=== PATIENT | female | born 1985 | race Caucasian/White ===

== ENCOUNTER 2020-11-30 12:06 | Outpatient (REF) | payer OTHER, SELFPAY ==
[2020-11-30 12:51] LABS: MANUAL DIFF FLAG NO
[2020-11-30 12:52] LABS: Basophils Percent Auto 0.8 % (0-2); Eosinophils Absolute Auto 0.1 X10*3/uL (0.0-0.4); Eosinophils Percent Auto 1.9 % (0-4); Hematocrit 39.4 % (37-47); Hemoglobin 12.9 g/dl (12.0-16.0); Imm Gran Abs Auto 0.01 X10*3/uL (0.00-0.03); Imm Gran Pct Auto 0.2 % (0.0-0.4); Lymphocytes Absolute Auto 1.5 X10*3/uL (1.2-4.9); Lymphocytes Percent Auto 28.2 % (20-40); Mean Corpuscular HGB Conc 32.7 g/dl (31.0-35.0); Mean Corpuscular Hemoglobin 27.4 pg (27.0-33.0); Mean Corpuscular Volume 83.8 fL (80-98); Monocytes Absolute Auto 0.8 X10*3/uL (0.1-1.2); Monocytes Percent Auto 14.9 % (2-11); Neutrophils Absolute Auto 2.8 X10*3/uL (2.0-8.3); Platelet Count 275 X10*3/uL (160-400); Red Cell Distribution Width 13.8 % (11.0-16.0); White Blood Count 5.2 X10*3/uL (4.8-10.8)
[2020-11-30 13:23] LABS: Alanine Aminotransferase 14 U/L (0-31); Albumin Level 4.2 g/dL (3.5-5.0); Alkaline Phosphatase 56 U/L (39-117); Anion Gap 10 (12-20); Aspartate Amino Transferase 17 U/L (5-31); Bilirubin Total 0.5 mg/dL (0.0-1.0); Blood Urea Nitrogen 11 mg/dL (9-16); Calcium 9.3 mg/dL (8.4-10.2); Carbon Dioxide 28 mmol/L (22-29); Chloride 105 mmol/L (96-108); Cholesterol 197 mg/dL; Estimated Glomerular Filt Rate > 60; Glucose Fasting 86 mg/dL (60-99); HDL Cholesterol 46 mg/dL; LDL Cholesterol Calculated 136 mg/dl; Potassium 3.4 mmol/L (3.3-5.1); Sodium 140 mmol/L (135-145); Triglycerides 78 mg/dL
[2020-11-30 13:43] LABS: TSH reflex Free T4 1.42 uIU/mL (0.32-4.0)
[2020-11-30 14:02] LABS: Folate > 20.0 ng/mL (> or = 4.0); Vitamin B12 567 pg/mL (200-900)
[2020-12-05 15:37] LABS: Vitamin D 25-OH, D2 <4 ng/mL; Vitamin D 25-OH, D3 36 ng/mL; Vitamin D 25-OH, Total 36 ng/mL (30-100)
== END 2020-11-30 12:07 | disposition home or self-care (01) ==
LOC: HO.LAB 12:06
PROVIDERS: Visit Provider Internal Medicine
DX: R53.82 Chronic fatigue, unspecified (principal); E66.3 Overweight; E78.5 Hyperlipidemia, unspecified; E55.9 Vitamin D deficiency, unspecified; Z20.822 Contact with and (suspected) exposure to COVID-19
CPT/HCPCS: 36415; 80053; 80061; 82306; 82607; 82746; 84443; 85025

== ENCOUNTER 2021-01-09 14:16 | Outpatient (REF) | payer OTHER, SELFPAY ==
--- NOTE | ~2021-01-09 | MR_ITS ---
EXAMINATION: MR BRAIN WITHOUT CONTRAST CLINICAL INFORMATION: New daily headaches. COMPARISON: None. TECHNIQUE: Multiplanar, multisequence imaging of the brain was performed without contrast. FINDINGS: No diffusion abnormalities are identified to suggest an acute or subacute infarct. The ventricles are normal in size. No mass effect or midline shift is seen. No brain parenchymal signal abnormality is noted. No extra-axial fluid collections are seen. The brainstem and cerebellum are normal. The gradient refocused acquisition is normal. The craniovertebral junction, marrow signal, and midline structures are normal. The major intracranial flow voids at the level of the [place] of [place] are preserved. The dural venous sinus flow voids are maintained. The mastoid air cells and paranasal sinuses are well aerated. MR/MR head/brain wo con IMPRESSION: Normal MRI of the brain. No acute process.
== END 2021-01-09 14:17 | disposition home or self-care (01) ==
LOC: HO.MRI 14:16
PROVIDERS: Visit Provider Internal Medicine
DX: G44.52 New daily persistent headache (NDPH) (principal)
CPT/HCPCS: 70551

== ENCOUNTER → 2021-04-28 14:36 | Outpatient (REF) | payer OTHER, SELFPAY ==
--- NOTE | 2021-04-28 14:45 | ECG_ITS ---
Hook-up date: 2021-04-28 14:53:00 Duration: 47:59:00 Test Indications: R00.2 Medications: [id number] QRS complexes 30 Ventricular ectopics which represent <1 % of total QRS comp. 4 Supraventricular ectopics which represent <1 % of total QRS comp. * Paced QRS complexs which represent % of total QRS comp. VENTRICULAR ECTOPY 30 Isolated 0 Bigeminal Cycles 0 Couplets 0 Runs 0 Beats in Runs * Beats LONGEST at * BPM at :: -- * Beats FASTEST at * BPM at :: -- SUPRAVENTRICULAR ECTOPY 1 Isolated 0 Couplets 1 Runs 3 Beats in Runs 3 Beats LONGEST at 118 BPM at 03:37:26 2021-04-30 3 Beats FASTEST at 118 BPM at 03:37:26 2021-04-30 HEART RATES 56 MIN at 08:31:47 2021-04-30 85 AVG 154 MAX at 11:55:10 2021-04-29 LONGEST RR 1.1280 secs at 00:28:18 2021-04-29 S-T LEVELS Channel 1 - 128 mm at 14:53:00 2021-04-28 - 128 mm at 14:53:00 2021-04-28 Channel 2 - 128 mm at 14:53:00 2021-04-28 - 128 mm at 14:53:00 2021-04-28 Channel 3 - 128 mm at 03:41:21 -- - 128 mm at 03:41:21 Underlying rhythm is sinus; Average ventricular rate 85/min; range 56-154/min; About 17% of the time, rate>100/min; Rare PACs/PVCs; Patient did not report any symptoms in the diary Referred By: Aurora Mejia Overread By: ADAM AUGUSTIN
== END ==
LOC: HO.CARD 14:36
PROVIDERS: Visit Provider Internal Medicine
DX: R00.2 Palpitations (principal)
CPT/HCPCS: 93225; 93226

== ENCOUNTER 2021-07-28 17:19 | Outpatient (REF) | payer OTHER, SELFPAY ==
--- NOTE | ~2021-07-28 | XR_ITS ---
EXAMINATION: XR THORACOLUMBAR SPINE CLINICAL INFORMATION: Pain COMPARISON: None TECHNIQUE: 3 views of the thoracic spine FINDINGS: There is mild curvature of the lower thoracic and upper lumbar spine to the right. Bone alignment is otherwise normal. No fracture or dislocation is seen. Disc spaces are normal. Paraspinal soft tissues are normal. XR/XR thoracic spine 2V IMPRESSION: Mild curvature of the thoracolumbar spine otherwise unremarkable exam.
== END 2021-07-28 17:20 | disposition home or self-care (01) ==
LOC: HO.XRAY 17:19
PROVIDERS: PCP Internal Medicine; Visit Provider Internal Medicine
DX: M54.6 Pain in thoracic spine (principal)
CPT/HCPCS: 72070

== ENCOUNTER 2021-11-23 12:41 | Outpatient (REF) | payer OTHER, SELFPAY ==
[2021-11-23 13:03] LABS: MANUAL DIFF FLAG NO
[2021-11-23 13:26] LABS: Basophils Percent Auto 0.6 % (0-2); Eosinophils Absolute Auto 0.1 X10*3/uL (0.0-0.4); Eosinophils Percent Auto 1.5 % (0-4); Hematocrit 39.5 % (37.0-47.0); Hemoglobin 12.9 g/dl (12.0-16.0); Imm Gran Abs Auto 0.03 X10*3/uL (0.00-0.03); Imm Gran Pct Auto 0.5 % (0.0-0.4); Lymphocytes Absolute Auto 1.7 X10*3/uL (1.2-4.9); Lymphocytes Percent Auto 26.1 % (20-40); Mean Corpuscular HGB Conc 32.7 g/dl (31.0-35.0); Mean Corpuscular Hemoglobin 27.7 pg (27.0-33.0); Mean Corpuscular Volume 84.8 fL (80.0-98.0); Mean Platelet Volume 10.7 fL (9.4-12.3); Neutrophils Absolute Auto 3.7 x10*3/uL (2.0-8.3); Neutrophils Percent Auto 56.3 % (45-73); Platelet Count 273 X10*3/uL (160-400); Red Blood Count 4.66 X10*6/uL (4.20-5.50); Red Cell Distribution Width 13.9 % (11.0-16.0); White Blood Count 6.6 X10*3/uL (4.8-10.8)
[2021-11-23 14:16] LABS: Alanine Aminotransferase 14 U/L (0-31); Alkaline Phosphatase 49 U/L (39-117); Anion Gap 10 (12-20); Aspartate Amino Transferase 14 U/L (5-31); Bilirubin Total 0.5 mg/dL (0.0-1.0); Blood Urea Nitrogen 11 mg/dL (9-16); Calcium 9.3 mg/dL (8.4-10.2); Carbon Dioxide 26 mmol/L (22-29); Chloride 108 mmol/L (96-108); Cholesterol 196 mg/dL; Estimated Glomerular Filt Rate > 60; Glucose Fasting 77 mg/dL (60-99); HDL Cholesterol 44 mg/dL; LDL Cholesterol Calculated 132 mg/dl; Potassium 3.9 mmol/L (3.3-5.1); Sodium 140 mmol/L (135-145); Total Protein 6.7 g/dL (6.5-8.0); Triglycerides 104 mg/dL
[2021-11-28 15:16] LABS: Vitamin D 25-OH, D2 <4 ng/mL; Vitamin D 25-OH, D3 26 ng/mL; Vitamin D 25-OH, Total 26 ng/mL (30-100)
== END 2021-11-23 12:42 | disposition home or self-care (01) ==
LOC: HO.LAB 12:41
PROVIDERS: Visit Provider Internal Medicine
DX: Z00.00 Encounter for general adult medical examination without abnormal findings (principal); E55.9 Vitamin D deficiency, unspecified
CPT/HCPCS: 36415; 80053; 80061; 82306; 85025

== ENCOUNTER 2022-12-03 10:20 | Outpatient (REF) | payer OTHER, SELFPAY ==
[2022-12-03 10:45] LABS: MANUAL DIFF FLAG NO
[2022-12-03 11:03] LABS: Basophils Absolute Auto 0.1 X10*3/uL (0.0-0.2); Basophils Percent Auto 1.1 % (0-2); Eosinophils Absolute Auto 0.2 X10*3/uL (0.0-0.4); Eosinophils Percent Auto 3.4 % (0-4); Hematocrit 40.2 % (37.0-47.0); Imm Gran Abs Auto 0.02 X10*3/uL (0.00-0.03); Imm Gran Pct Auto 0.4 % (0.0-0.4); Lymphocytes Absolute Auto 1.6 X10*3/uL (1.2-4.9); Lymphocytes Percent Auto 28.6 % (20-40); Mean Corpuscular HGB Conc 32.3 g/dl (31.0-35.0); Mean Corpuscular Hemoglobin 27.3 pg (27.0-33.0); Mean Corpuscular Volume 84.3 fL (80.0-98.0); Mean Platelet Volume 10.1 fL (9.4-12.3); Monocytes Absolute Auto 0.9 X10*3/uL (0.1-1.2); Neutrophils Absolute Auto 2.9 x10*3/uL (2.0-8.3); Neutrophils Percent Auto 51.5 % (45-73); Platelet Count 278 X10*3/uL (160-400); Red Blood Count 4.77 X10*6/uL (4.20-5.50); Red Cell Distribution Width 14.1 % (11.0-16.0); White Blood Count 5.7 X10*3/uL (4.8-10.8)
[2022-12-03 11:51] LABS: Alanine Aminotransferase 13 U/L (0-31); Alkaline Phosphatase 45 U/L (39-117); Anion Gap 12 (12-20); Aspartate Amino Transferase 14 U/L (5-31); Bilirubin Total 0.6 mg/dL (0.0-1.0); Blood Urea Nitrogen 9 mg/dL (9-16); Calcium 9.2 mg/dL (8.4-10.2); Carbon Dioxide 25 mmol/L (22-29); Chloride 110 mmol/L (96-108); Cholesterol 202 mg/dL; Estimated Glomerular Filt Rate > 60; Glucose Fasting 88 mg/dL (60-99); HDL Cholesterol 42 mg/dL; LDL Cholesterol Calculated 143 mg/dl; Sodium 143 mmol/L (135-145); Total Protein 6.5 g/dL (6.5-8.0); Triglycerides 87 mg/dL; Vitamin D 25-OH Total 35.6 ng/mL (>30)
== END 2022-12-03 10:21 | disposition home or self-care (01) ==
LOC: HO.LAB 10:20
PROVIDERS: PCP Internal Medicine; Visit Provider Internal Medicine
DX: Z00.00 Encounter for general adult medical examination without abnormal findings (principal); E55.9 Vitamin D deficiency, unspecified; D64.9 Anemia, unspecified
CPT/HCPCS: 36415; 80053; 80061; 82306; 85025

== ENCOUNTER 2023-02-11 09:49 | Emergency (ER) | payer OTHER, SELFPAY ==
--- NOTE | ~2023-02-11 | XR_ITS ---
EXAMINATION: XR FOOT, LEFT CLINICAL INFORMATION: Pain. Fall. COMPARISON: None available. TECHNIQUE: AP, lateral, and oblique views of the left foot. FINDINGS: The bones and soft tissues are normal. No fracture. Alignment is anatomic. Joint spaces are maintained. XR/XR foot LT 2V IMPRESSION: Normal left foot.
[2023-02-11 09:59] VITALS: BP 141/65; PULSE 67; RESP 18; TEMP 36.1; O2SAT 99; BMI 29.9
--- NOTE | 2023-02-11 10:44 | ED_ITS ---
HPI - Extremity Injury (Lower) General Chief Complaint: Extremity Injury, Lower Stated Complaint: fall l leg inj Time Seen by Provider: 02/11/23 10:05 Source: patient and federal appellate clerk Mode of arrival: ambulatory Limitations: language barrier History of Present Illness HPI Narrative: This is a 37-year-old female who is healthy who presents with left foot pain after a fall 6 days ago. Patient reports she has been unable to be seen for the foot pain. She has pain with weight-bearing. She denies any other injury. No weakness, numbness, tingling of the foot Related Data Previous Rx's Medication Instructions Recorded ketoconazole 2 % shampoo 1 appl topical .COMPLEX #120 mL 04/05/22 omeprazole 40 mg capsule,delayed 40 mg PO DAILY 90 days #90 caps 05/22/22 release naproxen 500 mg tablet 500 mg PO Q12H 90 days #180 tabs 06/14/22 cholecalciferol (vitamin D3) 25 25 mcg PO DAILY 90 days #90 caps 11/09/22 mcg (1,000 unit) capsule lorazepam 0.5 mg tablet 0.5 mg PO BEDTIME PRN anxiety 30 11/09/22 days #30 tabs fluoxetine 10 mg capsule 10 mg PO DAILY 90 days #90 caps 11/19/22 cetirizine 10 mg tablet (Allergy 10 mg PO DAILY PRN allergy 12/21/22 Relief (cetirizine)) symptoms 30 days #30 tabs triamcinolone acetonide 0.5 % 1 appl topical BID 30 days #15 12/21/22 topical cream grams Allergies Allergy/AdvReac Type Severity Reaction Status Date / Time escitalopram AdvReac Intermediate Abdominal Verified 02/11/23 10:01 Pain Review of Systems Review of Systems: Yes all other systems are reviewed and are negative Constitutional: Constitutional: Reports no additional constitutional complaints, Denies body ache(s), Denies chills, Denies fever(s), Denies headache(s) and Denies weakness Eyes: Eyes: Reports no additional eye complaints and Denies change in vision ENT: Reports system reviewed and no additional complaints, except as documented, Denies dizziness, Denies headache(s), Denies nasal congestion, Denies nasal discharge and Denies neck pain Cardiovascular: Cardiovascular: Reports no additional cardiovascular complaints, Denies chest pain, Denies leg edema and Denies dyspnea Respiratory: Respiratory: Reports no additional respiratory complaints, Denies cough and Denies dyspnea Gastrointestinal: Gastrointestinal: Reports no additional gastrointestinal complaints, Denies abdominal pain, Denies diarrhea, Denies nausea and Denies vomiting Genitourinary: Genitourinary: Reports no additional female genitourinary complaints and Denies urinary incontinence Musculoskeletal: Musculoskeletal: Reports no additional musculoskeletal complaints, Denies back pain, Reports arthralgias, Reports joint swelling, Denies limited range of motion, Denies neck pain, Denies numbness and Denies tingling Integumentary/Breasts: Skin/Breast: Reports system reviewed and no additional complaints, except as docu and Denies rash Neurologic: Reports system reviewed and no additional complaints, except as documented, Denies Abnormal speech present, Denies dizziness, Denies headache(s), Denies numbness, Denies tingling and Denies weakness PMFSH Past Medical History Attestation statement: The following information was validated with the patient. Source: old records reviewed and nursing notes reviewed Medical History Allergies Anxiety Chronic fatigue Difficulty swallowing solids GERD (gastroesophageal reflux disease) Headache Hypovitaminosis D Mild recurrent major depression Overweight Palpitations Physical exam Rash Thoracic spine pain Surgical History H/O tubal ligation History of section Family History Family History Father Hypertension Mother Hypertension Chronic mental illness Brother No problems noted. Brother No problems noted. Daughter No problems noted. Daughter No problems noted. Daughter No problems noted. Social History Social History Housing: House Alcohol intake: current Alcohol intake frequency: holidays/special occasions only Patient Tobacco Use Status: Never used Tobacco e-Cigarette/Vaping Use: Never Used Second Hand Smoke Exposure: No Advance Directives: No Advance Directives Information Provided: Yes service: No Current occupational status: employed Current occupational exposures/hazards: No Cognitive needs: No Hearing needs: No Vision needs: No Physical Exam Vital Signs: Vital Signs: Last Vital Signs Temp 97.0 F 02/11/23 09:59 Pulse 67 02/11/23 09:59 Resp 18 02/11/23 09:59 BP 141/65 H 02/11/23 09:59 Pulse Ox 99 02/11/23 09:59 O2 Del Method Room Air 02/11/23 09:59 BMI result Body Mass Index 29.9 Const: General: cooperative, healthy appearing, comfortable and no acute distress Orientation/consciousness: patient oriented x3 Limitations: no limitations HEENT: Head: Yes normal to inspection Ears: hearing grossly normal bilaterally General nose exam: Normal external nose present Face and sinus: Yes normal facial exam Mouth: Normal oral and palatal mucosa present Throat: Yes posterior oropharynx normal Eyes: General: appearance normal, both eyes and all related structures Pupils: Equal, round and reactive pupils present Neck: Neck: Yes normal visual inspection Chest: Chest palpation & inspection: normal inspection of the chest Resp: Effort & Inspection: normal respiratory effort Auscultation: clear to auscultation bilaterally Cardio: Rate: regular rate Rhythm: regular rhythm Peripheral pulses: Peripheral pulses 2+ throughout GI: Inspection: Yes normal to inspection Palpation (GI): Soft to palpation and nontender Auscultation: normal bowel sounds Back/Spine/Pelvis: Thoracic/Lumbar Spine: thoracic and lumbar spine normal to inspection Skin: General skin exam: no rashes or lesions noted Neuro: General: patient oriented x3, no focal motor deficits and normal sensation to monofilament Cranial nerves: Yes Equal, round and reactive pupils present Cognition (Neuro): normal cognition Speech: No Abnormal speech present Gait exam (Neuro): Normal gait present Motor exam (neuro): 5/5 motor strength present throughout Extrem: Other: Over the left dorsal foot there is ecchymosis, swelling and tenderness on palpation Full range of motion. No tenderness over the ankle. Palpable DP and PT pulses. Normal sensation General: Yes normal to inspection Course Course Course Narrative: X-ray show no fracture. Likely sprain or contusion. Patient placed in Terell wrap and given crutches for home. Reviewed rice. Reviewed worrisome signs and symptoms of when to return to the emergency room. Comfortable plan for discharge home. Medical Decision Making Medical Decision Making MDM Narrative: 37-year-old female here with left foot pain and swelling as well as bruising after a fall 6 days ago. Will check x-rays. Differential Diagnosis Differential Diagnoses: The differential diagnosis associated with the presentation includes Fracture, sprain, low concern for vascular injury Independent Interpretation I performed an independent interpretation of an: Plain X-Ray Interpretation: I independently reviewed the x-ray and agree with radiologist's report Radiology Impression Discussion of test interpretation with radiology: I have reviewed the radiologist's reading. Radiologist Impression: [address] [address] XRay Report Signed Patient: Charlie Todd MR#: [id number] : 1985 Acct:[id number] Age/Sex: 37 / F ADM Date: 02/11/23 Loc: HO.ED Attending Dr: Ordering Physician: Abigail Trejo NP Date of Service: 02/11/23 Procedure(s): XR foot LT 2V Accession Number(s): [id number] cc: Abigail Trejo NP~ EXAMINATION: XR FOOT, LEFT CLINICAL INFORMATION: Pain. Fall.? COMPARISON: None available.? TECHNIQUE: AP, lateral, and oblique views of the left foot. FINDINGS: The bones and soft tissues are normal. No fracture. Alignment is anatomic. Joint spaces are maintained.? XR/XR foot LT 2V IMPRESSION: Normal left foot. Discharge Plan Discharge Clinical Impression: Sprain of foot, left Patient Disposition: Home, Self-Care Instructions: Foot Sprain (ED) Additional Instructions: Hielo a la carlos El?vate, descansa. Use la venda Terell y las muletas biju los pr?ximos d?as hasta que pueda soportar peso sin sentir dolor. Alterne Motrin Tylenol para el dolor seg?n sea necesario. Seguimiento con el m?dico de atenci?n primaria 1 semana por cualquier s?ntoma persistente. Ice to the area Elevate, rest. Use the Terell wrap and crutches for the next few days until able to bear weight without experiencing pain. Alternate Motrin Tylenol for pain as needed. Follow-up with primary care doctor 1 week for any persistent symptoms. Prescriptions: No Action ketoconazole 2 % shampoo 1 appl topical .COMPLEX Qty: 120 3RF Rx Instructions: 1 appl topical 2x a week as needed; omeprazole 40 mg capsule,delayed release(/EC) 40 mg PO DAILY 90 Days Qty: 90 3RF naproxen 500 mg tablet 500 mg PO Q12H 90 Days Qty: 180 1RF cholecalciferol (vitamin D3) 25 mcg (1,000 unit) capsule 25 mcg PO DAILY 90 Days Qty: 90 3RF lorazepam 0.5 mg tablet 0.5 mg PO BEDTIME PRN (Reason: anxiety) 30 Days Qty: 30 0RF fluoxetine 10 mg capsule 10 mg PO DAILY 90 Days Qty: 90 3RF cetirizine [Allergy Relief (cetirizine)] 10 mg tablet 10 mg PO DAILY PRN (Reason: allergy symptoms) 30 Days Qty: 30 6RF triamcinolone acetonide 0.5 % cream 1 appl topical BID 30 Days Qty: 15 2RF Referrals: Aurora Farr MD [Primary Care Provider] - 1 week Print Language: Frisian
== END 2023-02-11 11:50 | disposition home or self-care (01) ==
PROVIDERS: Emergency Provider Emergency Medicine; PCP Internal Medicine
DX: S93.602A Unspecified sprain of left foot, initial encounter (principal); W19.XXXA Unspecified fall, initial encounter; Y93.9 Activity, unspecified; Y92.9 Unspecified place or not applicable; Y99.9 Unspecified external cause status
CPT/HCPCS: 73620; 99282; 99283

== ENCOUNTER 2023-08-20 13:37 | Outpatient (AMB) | payer OTHER, SELFPAY ==
[2023-08-20 13:40] VITALS: BP 126/82; PULSE 78; O2SAT 99; BMI 29.4
--- NOTE | 2023-08-20 13:40 | A.OFFPC_ITS ---
Vital Signs 08/20/23 13:40 Height 5 ft 3 in Weight 166 lb BMI 29.4 BP 126/82 Blood Pressure Location Lt brachial Position Sitting Pulse 78 Pulse Source Pulse Oximeter Pulse Oximetry (%) 99 Oxygen Delivery Method Room Air Intake Visit Reasons: Discuss Dermatology Referral Intake Note: Patient here to discuss dermatology referral Training And Development Professional Required: No Accompanied by: Self / Same As Patient Allergies escitalopram Adverse Reaction (Intermediate, Verified 08/20/23 13:56) Abdominal Pain Medication List - Last Reconciled 08/20/23 by Aurora Mejia MD cetirizine (Allergy Relief (cetirizine)) 10 mg PO DAILY PRN 90 days cholecalciferol (vitamin D3) 25 mcg PO DAILY 90 days fluoxetine 10 mg PO DAILY 90 days ketoconazole 2% 1 appl topical 2x a week as needed; lorazepam 0.5 mg PO BEDTIME PRN 30 days naproxen 500 mg PO Q12H 90 days omeprazole 40 mg PO DAILY 90 days triamcinolone acetonide 0.5% 1 appl topical BID 30 days Tobacco use date assessed: 11/26/22 Dental Screening Dental Screen Date: 08/20/23 Did you have a dental visit in the last 12 months?: Yes Did you have a dental problem in the last 6 months where you did not have access to dental care?: No Was dental information given to patient?: Patient has dentist HPI HPI Comments History of Present Illness Details This is a 38-year-old female with mild recurrent major depression, anxiety and GERD that complains of hair loss that started few months ago. She also feels fatigue and tired. Will be referred to dermatology. Depression stable with medication as well as anxiety. GERD stable with PPIs. [facility] Medical History (Updated 08/20/23 @ 14:01 by Aurora Mejia MD) Physical exam Mild recurrent major depression Thoracic spine pain Headache Anxiety Palpitations Rash Difficulty swallowing solids Chronic fatigue Overweight Allergies Hypovitaminosis D GERD (gastroesophageal reflux disease) Surgical History H/O tubal ligation History of section Family History Father Hypertension Mother Hypertension Chronic mental illness Brother No problems noted. Brother No problems noted. Daughter No problems noted. Daughter No problems noted. Daughter No problems noted. Social History Housing: House Alcohol intake: current Alcohol intake frequency: holidays/special occasions only Patient Tobacco Use Status: Never used Tobacco e-Cigarette/Vaping Use: Never Used Second Hand Smoke Exposure: No service: No Current occupational status: employed Current occupational exposures/hazards: No Cognitive needs: No Hearing needs: No Vision needs: No Questionnaire Thrive Questionnaire Date Thrive assessed: 11/26/22 DAKOTA-7 AMB Questionnaire DAKOTA-7 Date DAKOTA - 7 assessed: 11/26/22 Source: Developed by Drs. Jourdan Vargas, Brandi Roldan, Brgiht Medellin and colleagues, with an educational anu from [employer]. Review of Systems Const All systems reviewed & are unremarkable except as noted in HPI and below Eyes Reports no additional complaints, Denies change in vision and Denies other visu al disturbances Card Denies chest pain at rest, Denies chest pain with activity, Denies edema, Denies irregular heart rhythm, Denies claudication, Denies dyspnea, Denies dyspnea on exertion, Denies orthopnea, Denies paroxysmal nocturnal dyspnea and Denies slow heart rate Resp Denies cough, Denies dyspnea and Denies dyspnea on exertion GI Denies abdominal pain, Denies change in bowel habits, Denies excessive flatus, Denies nausea and Denies vomiting Denies urinary incontinence, Denies urinary hesitancy and Denies urinary urgency Musc Denies abnormal gait, Denies atrophy, Denies deformity and Denies limited range of motion Skin/Breast Denies bleeding lesions, Denies changing lesions and Denies rash Neuro Denies abnormal gait and Denies lack of coordination Physical exam (Primary Care) Vital Signs: Last Vital Signs Pulse 78 08/20/23 13:40 BP 126/82 08/20/23 13:40 Pulse Ox 99 08/20/23 13:40 Oxygen Delivery Method Room Air 08/20/23 13:40 BMI result Body Mass Index 29.4 Tobacco/Smoking Status: Tobacco use Status Tobacco use date assessed 11/26/22 08/20/23 13:49 Patient Tobacco Use Status Never used Tobacco 08/20/23 13:49 e-Cigarette/Vaping Use Never Used 08/20/23 13:49 Thrive Assessment: Date of Thrive Assessment Date Thrive assessed 11/26/22 08/20/23 13:49 Eyes General: appearance normal, both eyes and all related structures Eyelids: Yes eyelids normal Conjunctivae: conjunctivae normal Neck Neck: Yes normal visual inspection and Yes supple Resp Effort & Inspection: normal respiratory effort Auscultation: clear to auscultation bilaterally Cardio Jugular venous distension: no JVD Rate: regular rate Rhythm: regular rhythm Heart sounds: S1 normal heart sound present and S2 normal heart sound present Extrem General: Yes full ROM Office Procedures Flu Questionnaire Does the patient have a severe egg allergy?: No Immunizations flu vacc [id number] 6mos up(PF) 60 mcg(15 mcgx4)/0.5 mL IM syringe Performing Provider: Aurora Mejia MD [facility] Documented (not given) by: TRAVIS Urias on 08/20/23 13:52 Reason Not Given: Patient Refused Assessment and Plan Assessment & Plan (1) Hair loss: Code(s): L65.9 - Nonscarring hair loss, unspecified Plan: Referred to dermatology. (2) Mild recurrent major depression: Code(s): F33.0 - Major depressive disorder, recurrent, mild Plan: Continue SSRIs. (3) Anxiety: Code(s): F41.9 - Anxiety disorder, unspecified Plan: Continue benzodiazepines as needed. (4) GERD (gastroesophageal reflux disease): Code(s): K21.9 - Gastro-esophageal reflux disease without esophagitis Qualifiers: Esophagitis presence: esophagitis presence not specified Qualified Code(s): K21.9 - Gastro-esophageal reflux disease without esophagitis Plan: Continue PPIs as needed. Orders: Orders Influenza [id number] Immunization Today Z23 - Encounter for immunization Vitamin D 25-OH Total Today E55.9 - Vitamin D deficiency, unspecified Vitamin B12 and Folate Today E53.8 - Deficiency of other specified B group vitamins Complete Blood Count Auto Diff Today D64.9 - Anemia, unspecified IRON PROFILE Today D64.9 - Anemia, unspecified Thyroid Stimulating Hormone Today L65.9 - Nonscarring hair loss, unspecified Referrals Dermatology Referral L65.9 - Nonscarring hair loss, unspecified Coding Level of Care Code Est Pt Level 4 (52654) Diagnoses Hair loss L65.9 Mild recurrent major depression F33.0 Anxiety F41.9 Gastroesophageal reflux disease, unspecified whether esophagitis present K21.9 Esophagitis presence: esophagitis presence not specified Time Spent (min) 22
== END 2023-08-20 14:05 | disposition home or self-care (01) ==
PROVIDERS: PCP Internal Medicine; Visit Provider Internal Medicine
DX: K21.9 Gastro-esophageal reflux disease without esophagitis (principal); F33.0 Major depressive disorder, recurrent, mild; E55.9 Vitamin D deficiency, unspecified; L65.9 Nonscarring hair loss, unspecified; F41.9 Anxiety disorder, unspecified
CPT/HCPCS: 99214

== ENCOUNTER 2023-08-20 14:15 | Outpatient (REF) | payer OTHER, SELFPAY ==
[2023-08-20 14:55] LABS: MANUAL DIFF FLAG NO
[2023-08-20 15:49] LABS: Basophils Absolute Auto 0.1 X10*3/uL (0.0-0.2); Eosinophils Absolute Auto 0.2 X10*3/uL (0.0-0.4); Eosinophils Percent Auto 2.6 % (0-4); Hematocrit 38.7 % (37.0-47.0); Hemoglobin 12.5 g/dl (12.0-16.0); Imm Gran Abs Auto 0.02 X10*3/uL (0.00-0.03); Imm Gran Pct Auto 0.3 % (0.0-0.4); Lymphocytes Absolute Auto 1.8 X10*3/uL (1.2-4.9); Lymphocytes Percent Auto 24.2 % (20-40); Mean Corpuscular HGB Conc 32.3 g/dl (31.0-35.0); Mean Corpuscular Hemoglobin 27.3 pg (27.0-33.0); Mean Corpuscular Volume 84.5 fL (80.0-98.0); Mean Platelet Volume 10.4 fL (9.4-12.3); Monocytes Percent Auto 13.9 % (2-11); Neutrophils Absolute Auto 4.2 x10*3/uL (2.0-8.3); Platelet Count 279 X10*3/uL (160-400); Red Blood Count 4.58 X10*6/uL (4.20-5.50); Red Cell Distribution Width 14.2 % (11.0-16.0); White Blood Count 7.2 X10*3/uL (4.8-10.8)
[2023-08-20 16:13] LABS: Iron 103 mcg/dL (30-160); Percent Iron Saturation 39 % (15-50); Total Iron Binding Capacity 264 mcg/dL (228-428); Unsaturated Iron Binding 161 ug/dL
[2023-08-20 16:29] LABS: Thyroid Stimulating Hormone 2.67 uIU/mL (0.32-4.0); Vitamin D 25-OH Total 40.7 ng/mL (>30)
[2023-08-20 16:42] LABS: Folate 11.3 ng/mL (> or = 4.0); Vitamin B12 492 pg/mL (200-900)
== END 2023-08-20 14:16 | disposition home or self-care (01) ==
LOC: HO.LAB 14:15
PROVIDERS: PCP Internal Medicine; Visit Provider Internal Medicine
DX: D64.9 Anemia, unspecified (principal); L65.9 Nonscarring hair loss, unspecified; E53.8 Deficiency of other specified B group vitamins; E55.9 Vitamin D deficiency, unspecified
CPT/HCPCS: 36415; 82306; 82607; 82746; 83540; 84443; 85025

== ENCOUNTER 2023-11-13 09:33 | Outpatient (AMB) | payer OTHER, SELFPAY ==
[2023-11-13 10:09] VITALS: BP 132/80; BMI 29.4
--- NOTE | 2023-11-13 10:09 | MHC.PC.OV ---
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 Accompanied by: Self / Same As Patient Allergies escitalopram Adverse Reaction (Intermediate, Verified 11/13/23 10:24) Abdominal Pain Medication List - Last Reconciled 11/13/23 by Aurora Mejia MD amoxicillin 500 mg PO BID 5 days cetirizine (Allergy Relief (cetirizine)) 10 mg PO DAILY PRN 90 days cholecalciferol (vitamin D3) 25 mcg PO DAILY 90 days fluoxetine 10 mg PO DAILY 90 days ketoconazole 2% 1 appl topical 2x a week as needed; lorazepam 0.5 mg PO BEDTIME PRN 30 days naproxen 500 mg PO Q12H 90 days omeprazole 40 mg PO DAILY 90 days triamcinolone acetonide 0.5% 1 appl topical BID 30 days Tobacco use date assessed: 11/13/23 Dental Screening Dental Screen Date: 11/13/23 Did you have a dental visit in the last 12 months?: Yes Did you have a dental problem in the last 6 months where you did not have access to dental care?: No Was dental information given to patient?: Patient has dentist HPI HPI Comments History of Present Illness Details This is a 38-year-old female with mild recurrent major depression, GERD and low vitamin-D that comes today complaining of left ear pain that started about 3-4 days ago. She went to urgent care and was prescribed Cipro drops for the ear which did not improve her pain. Her pain is associated with slight dizziness. No nasal congestion or sore throat. She started amoxicillin yesterday. I told her that if pain continues to contact me to see if she needs a change in antibiotic. Depression stable with fluoxetine. GERD stable with PPIs as needed. On vitamin-D supplements for her low vitamin-D. [facility] Medical History (Updated 11/13/23 @ 10:39 by Aurora Mejia MD) Physical exam Mild recurrent major depression Thoracic spine pain Headache Anxiety Palpitations Rash Difficulty swallowing solids Chronic fatigue Overweight Allergies Hypovitaminosis D GERD (gastroesophageal reflux disease) Surgical History H/O tubal ligation History of section Family History Father Hypertension Mother Hypertension Chronic mental illness Brother No problems noted. Brother No problems noted. Daughter No problems noted. Daughter No problems noted. Daughter No problems noted. Social History Housing: House Alcohol intake: current Alcohol intake frequency: holidays/special occasions only Patient Tobacco Use Status: Never used Tobacco e-Cigarette/Vaping Use: Never Used Second Hand Smoke Exposure: No service: No Current occupational status: employed Current occupational exposures/hazards: No Cognitive needs: No Hearing needs: No Vision needs: No Questionnaire PHQ-9 Over the last 2 weeks, how often have you been bothered by any of the following problems? 1. Little interest or pleasure in doing things: several days 2. Feeling down, depressed, or hopeless: not at all 3. Trouble falling or staying asleep, or sleeping too much: several days 4. Feeling tired or having little energy: several days 5. Poor appetite or overeating: not at all 6. Feeling bad about yourself - or that you are a failure or have let yourself or your family down: not at all 7. Trouble concentrating on things, such as reading the newspaper or watching television: not at all 8. Moving or speaking so slowly that other people could have noticed. Or the opposite - being so fidgety or restless that you have been moving around a lot more than usual: not at all 9. Thoughts that you would be better off or of hurting yourself in some way: not at all Total score: 3 Depression Screening Interpretation: Positive Depression Screening Follow-up: Existing condition and In treatment Depression Screening Done: Yes 92392 - PHQ-9 Billing: Yes Source: Developed by Drs. Jourdan Vargas, Brandi Roldan, Bright Medellin and colleagues, with an educational anu from [employer]. Thrive Questionnaire Date Thrive assessed: 11/13/23 I am a: Patient What is your living situation today?: I have a steady place to live Within the past 12 months, did the food you bought not last and you didn't have the money to get more?: Never true Within the past 12 months, did you worry whether your food would run out before you got money to buy more?: Never true Do you have trouble paying for medicines?: No Do you have trouble getting transportation to medical appointments?: No Do you have trouble paying your heating and electricity bill?: No Do you have trouble taking care of your child, family member or friend?: No Do you have trouble with day-to-day activities such as bathing, preparing meals, shopping, managing finances, etc.?: No Are you currently unemployed and looking for a job?: No Are you interested in more education?: No Please select the resources that you would like help with: None Currently or been in a relationship where the following occur: no concerns reported THRIVE Score: 0 AUDIT C Alcohol Use Questionnaire (AUDIT-C) 1. How often do you have a drink containing alcohol?: Monthly or less 2. How many drinks containing alcohol do you have on a typical day when you are drinking?: 1 or 2 3. How often do you have six or more drinks on one occasion?: Never Total Score: 1 DAKOTA-7 AMB Questionnaire DAKOTA-7 Date DAKOTA - 7 assessed: 11/13/23 Feeling nervous, anxious, or on edge: 1 = Several days Not being able to stop or control worryin = Not at all Worrying too much about different things: 0 = Not at all Trouble relaxin = Not at all Being so restless that it is hard to sit still: 0 = Not at all Becoming easily annoyed or irritable: 0 = Not at all Feeling afraid as if something awful might happen: 0 = Not at all Total DAKOTA-7 score (0-4 normal; 5-9 mild; 10-14 moderate; 15-21 severe): 1 Source: Developed by Drs. Jourdan Vargas, Brandi Roldan, Bright Medellin and colleagues, with an educational anu from [employer]. DAKOTA-7 Assessment Billing DAKOTA-7 Assessment Tool: DAKOTA-7 Assessment 92368 Review of Systems Const All systems reviewed & are unremarkable except as noted in HPI and below Eyes Reports no additional complaints, Denies change in vision and Denies other visual disturbances Card Denies chest pain at rest, Denies chest pain with activity, Denies edema, Denies irregular heart rhythm, Denies claudication, Denies dyspnea, Denies dyspnea on exertion, Denies orthopnea, Denies paroxysmal nocturnal dyspnea and Denies slow heart rate Resp Denies cough, Denies dyspnea and Denies dyspnea on exertion GI Denies abdominal pain, Denies change in bowel habits, Denies excessive flatus, Denies nausea and Denies vomiting Denies urinary incontinence, Denies urinary hesitancy and Denies urinary urgency Musc Denies abnormal gait, Denies atrophy, Denies deformity and Denies limited range of motion Skin/Breast Denies bleeding lesions, Denies changing lesions and Denies rash Neuro Denies abnormal gait, Denies behavioral changes and Denies lack of coordination Psych Denies behavioral changes Physical exam (Primary Care) Vital Signs: Last Vital Signs BP 132/80 11/13/23 10:09 BMI result Body Mass Index 29.4 Tobacco/Smoking Status: Tobacco use Status Tobacco use date assessed 11/13/23 11/13/23 10:15 Patient Tobacco Use Status Never used Tobacco 11/13/23 10:15 e-Cigarette/Vaping Use Never Used 11/13/23 10:15 PHQ-9: PHQ-9 Score PHQ-9: Total score 3 11/13/23 10:15 Depression Screening Interpretation: Positive Depression Screening Follow-up: Existing condition and In treatment Thrive Assessment: Date of Thrive Assessment Date Thrive assessed 11/13/23 11/13/23 10:15 Currently or been in a relationship where the following occur: no concerns reported HENMT Ears: TM normal on the right and TM abnormal dull Eyes General: appearance normal, both eyes and all related structures Eyelids: Yes eyelids normal Conjunctivae: conjunctivae normal Neck Neck: Yes normal visual inspection and Yes supple Resp Effort & Inspection: normal respiratory effort Auscultation: clear to auscultation bilaterally Cardio Jugular venous distension: no JVD Rate: regular rate Rhythm: regular rhythm Heart sounds: S1 normal heart sound present and S2 normal heart sound present Extrem General: Yes full ROM Psych Appearance: grossly normal Office Procedures Flu Questionnaire Does the patient have a severe egg allergy?: No Immunizations flu vacc [id number] 6mos up(PF) 60 mcg(15 mcgx4)/0.5 mL IM syringe Performing Provider: Aurora Mejia MD [facility] Documented (not given) by: TRAVIS Urias on 11/13/23 10:16 Reason Not Given: Not Given Assessment and Plan Assessment & Plan (1) Otitis media: Code(s): H66.90 - Otitis media, unspecified, unspecified ear Qualifiers: Otitis media type: mucoid Chronicity: acute Laterality: left Qualified Code(s): H65.112 - Acute and subacute allergic otitis media (mucoid) (sanguinous) (serous), left ear Plan: Continue amoxicillin. (2) Mild recurrent major depression: Code(s): F33.0 - Major depressive disorder, recurrent, mild Plan: Continue fluoxetine. (3) GERD (gastroesophageal reflux disease): Code(s): K21.9 - Gastro-esophageal reflux disease without esophagitis Qualifiers: Esophagitis presence: esophagitis presence not specified Qualified Code(s): K21.9 - Gastro-esophageal reflux disease without esophagitis Plan: Continue PPIs as needed. (4) Hypovitaminosis D: Code(s): E55.9 - Vitamin D deficiency, unspecified Plan: Continue vitamin-D supplements. Orders: Orders Influenza [id number] Immunization Today Z23 - Encounter for immunization Comprehensive [place]. Panel Fast Today Z00.00 - Encounter for general adult medical examination without abnormal findings Thyroid Stimulating Hormone Today L65.9 - Nonscarring hair loss, unspecified Vitamin D 25-OH Total Today E55.9 - Vitamin D deficiency, unspecified Lipid Panel Today Z00.00 - Encounter for general adult medical examination without abnormal findings Coding Level of Care Code Est Pt Level 4 (53127) Diagnoses Acute mucoid otitis media of left ear H65.112 Otitis media type: mucoid Chronicity: acute Laterality: left Mild recurrent major depression F33.0 Gastroesophageal reflux disease, unspecified whether esophagitis present K21.9 Esophagitis presence: esophagitis presence not specified Hypovitaminosis D E55.9 Additional Codes DAKOTA-7 Assessment Billing - DAKOTA-7 Assessment Tool: DAKOTA-7 Assessment 19857 ([id number]) Time Spent (min) 23
== END 2023-11-13 10:33 | disposition home or self-care (01) ==
PROVIDERS: PCP Internal Medicine; Visit Provider Internal Medicine
DX: H65.112 Acute and subacute allergic otitis media (mucoid) (sanguinous) (serous), left ear (principal); F33.0 Major depressive disorder, recurrent, mild; K21.9 Gastro-esophageal reflux disease without esophagitis; E55.9 Vitamin D deficiency, unspecified
CPT/HCPCS: 96127; 99214

== ENCOUNTER 2023-12-04 16:02 | Outpatient (AMB) | payer OTHER, SELFPAY ==
[2023-12-04 16:08] VITALS: BP 128/80; BMI 29.9
--- NOTE | 2023-12-04 16:08 | A.OFFPC_ITS ---
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 Accompanied by: Self / Same As Patient Allergies escitalopram Adverse Reaction (Intermediate, Verified 12/04/23 16:21) Abdominal Pain Medication List - Last Reconciled 12/04/23 by Aurora Mejia MD cetirizine (Allergy Relief (cetirizine)) 10 mg PO DAILY PRN 90 days cholecalciferol (vitamin D3) 25 mcg PO DAILY 90 days fluoxetine 10 mg PO DAILY 90 days ketoconazole 2% 1 appl topical 2x a week as needed; lorazepam 0.5 mg PO BEDTIME PRN 30 days naproxen 500 mg PO Q12H 90 days omeprazole 40 mg PO DAILY 90 days triamcinolone acetonide 0.5% 1 appl topical BID 30 days Tobacco use date assessed: 11/13/23 HPI HPI Comments History of Present Illness Details This is a 38-year-old female with mild recurrent major depression that comes for her physical exam. Depression stable with fluoxetine. No chest pain or shortness a breath. Last Pap smear was few years ago at [facility] and was normal as per patient. [facility] Medical History Physical exam Mild recurrent major depression Thoracic spine pain Headache Anxiety Palpitations Rash Difficulty swallowing solids Chronic fatigue Overweight Allergies Hypovitaminosis D GERD (gastroesophageal reflux disease) Surgical History H/O tubal ligation History of section Family History Father Hypertension Mother Hypertension Chronic mental illness Brother No problems noted. Brother No problems noted. Daughter No problems noted. Daughter No problems noted. Daughter No problems noted. Social History Housing: House Alcohol intake: current Alcohol intake frequency: holidays/special occasions only Patient Tobacco Use Status: Never used Tobacco e-Cigarette/Vaping Use: Never Used Second Hand Smoke Exposure: No service: No Current occupational status: employed Current occupational exposures/hazards: No Cognitive needs: No Hearing needs: No Vision needs: No Questionnaire Thrive Questionnaire Date Thrive assessed: 11/13/23 DAKOTA-7 AMB Questionnaire DAKOTA-7 Date DAKOTA - 7 assessed: 11/13/23 Source: Developed by Drs. Jourdan Vargas, Brandi Roldan, Bright Medellin and colleagues, with an educational anu from [facility]. Review of Systems Const All systems reviewed & are unremarkable except as noted in HPI and below Eyes Reports no additional complaints, Denies change in vision and Denies other visual disturbances Card Denies chest pain at rest, Denies chest pain with activity, Denies edema, Denies irregular heart rhythm, Denies claudication, Denies dyspnea, Denies dyspnea on exertion, Denies orthopnea, Denies paroxysmal nocturnal dyspnea and Denies slow heart rate Resp Denies cough, Denies dyspnea and Denies dyspnea on exertion GI Denies abdominal pain, Denies change in bowel habits, Denies excessive flatus, Denies nausea and Denies vomiting Denies urinary incontinence, Denies urinary hesitancy and Denies urinary urgency Musc Denies abnormal gait, Denies atrophy, Denies deformity and Denies limited range of motion Skin/Breast Denies bleeding lesions, Denies changing lesions and Denies rash Neuro Denies abnormal gait and Denies lack of coordination Physical exam (Primary Care) Vital Signs: Last Vital Signs BP 128/80 12/04/23 16:08 BMI result Body Mass Index 29.9 Tobacco/Smoking Status: Tobacco use Status Tobacco use date assessed 11/13/23 12/04/23 16:13 Patient Tobacco Use Status Never used Tobacco 12/04/23 16:13 e-Cigarette/Vaping Use Never Used 12/04/23 16:13 Thrive Assessment: Date of Thrive Assessment Date Thrive assessed 11/13/23 12/04/23 16:13 Const Orientation/consciousness: patient oriented x3 HENMT Head: Yes normal to inspection, Yes normocephalic and Yes atraumatic Ears: external ears normal Eyes General: appearance normal, both eyes and all related structures Eyelids: Yes eyelids normal Conjunctivae: conjunctivae normal Neck Neck: Yes normal visual inspection and Yes supple Resp Effort & Inspection: normal respiratory effort Auscultation: clear to auscultation bilaterally Cardio Jugular venous distension: no JVD Rate: regular rate Rhythm: regular rhythm Heart sounds: S1 normal heart sound present and S2 normal heart sound present GI Inspection: Yes normal to inspection Palpation (GI): Soft to palpation and nontender Auscultation: normal bowel sounds Skin General skin exam: no rashes or lesions noted Neuro General: patient oriented x3 and no focal motor deficits Extrem General: Yes full ROM Psych Appearance: grossly normal Assessment and Plan Assessment & Plan (1) Physical exam: Code(s): Z00.00 - Encounter for general adult medical examination without abnormal findings Plan: Repeat in a year. (2) Mild recurrent major depression: Code(s): F33.0 - Major depressive disorder, recurrent, mild Plan: Continue fluoxetine. Medications: New fluocinolone acetonide oil 0.01% (DermOtic Oil) 5 drps otic (ear) left BID 20 mL 0RF 7 days Coding Level of Care Code Est Pt Prev Care 18-39y(04392) Diagnoses Physical exam Z00.00 Mild recurrent major depression F33.0 Time Spent (min) 32
== END 2023-12-04 16:30 | disposition home or self-care (01) ==
PROVIDERS: Visit Provider Internal Medicine
DX: Z00.00 Encounter for general adult medical examination without abnormal findings (principal); F33.0 Major depressive disorder, recurrent, mild
CPT/HCPCS: 99395

== ENCOUNTER 2024-01-15 11:26 | Outpatient (REF) | payer OTHER, SELFPAY ==
[2024-01-15 13:11] LABS: Alanine Aminotransferase 11 U/L (0-31); Albumin Level 4.1 g/dL (3.5-5.0); Alkaline Phosphatase 56 U/L (39-117); Anion Gap 9 (12-20); Aspartate Amino Transferase 15 U/L (5-31); Bilirubin Total 0.4 mg/dL (0.0-1.0); Blood Urea Nitrogen 11 mg/dL (9-16); Calcium 9.1 mg/dL (8.4-10.2); Carbon Dioxide 27 mmol/L (22-29); Chloride 108 mmol/L (96-108); Cholesterol 188 mg/dL (<200); Estimated Glomerular Filt Rate > 60; Glucose Fasting 85 mg/dL (60-99); HDL Cholesterol 43 mg/dL (>40); LDL Cholesterol Calculated 130 mg/dL (<100); Potassium 3.5 mmol/L (3.3-5.1); Sodium 140 mmol/L (135-145); Total Protein 7.2 g/dL (6.5-8.0); Triglycerides 79 mg/dL (<150)
[2024-01-15 13:14] LABS: Thyroid Stimulating Hormone 2.68 uIU/mL (0.32-4.0); Vitamin D 25-OH Total 39.4 ng/mL (>30)
== END 2024-01-15 11:27 | disposition home or self-care (01) ==
LOC: HO.LAB 11:26
PROVIDERS: PCP Internal Medicine; Visit Provider Internal Medicine
DX: Z00.00 Encounter for general adult medical examination without abnormal findings (principal); L65.9 Nonscarring hair loss, unspecified; E55.9 Vitamin D deficiency, unspecified; E87.6 Hypokalemia
CPT/HCPCS: 36415; 80053; 80061; 82306; 84443

== ENCOUNTER 2024-10-28 15:47 | Outpatient (AMB) | payer OTHER, SELFPAY ==
[2024-10-28 15:55] VITALS: BP 118/82; BMI 28.0
--- NOTE | 2024-10-28 15:55 | A.OFFPC_ITS ---
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 Accompanied by: Self / Same As Patient Allergies escitalopram Adverse Reaction (Intermediate, Verified 10/28/24 16:13) Abdominal Pain Medication List - Last Reconciled 10/28/24 by Aurora Mejia MD cetirizine (Allergy Relief (cetirizine)) 10 mg PO DAILY PRN 90 days cholecalciferol (vitamin D3) 25 mcg PO DAILY 90 days fluocinolone acetonide oil 0.01% (DermOtic Oil) 5 drps otic (ear) left BID 7 days fluoxetine 10 mg PO DAILY 90 days ketoconazole 2% 1 appl topical 2x a week as needed; lorazepam 0.5 mg PO BEDTIME PRN 30 days naproxen 500 mg PO Q12H 90 days omeprazole 40 mg PO DAILY 90 days triamcinolone acetonide 0.5% 1 appl topical BID 30 days Tobacco use date assessed: 10/28/24 Dental Screening Dental Screen Date: 10/28/24 Did you have a dental visit in the last 12 months?: Yes Did you have a dental problem in the last 6 months where you did not have access to dental care?: No Was dental information given to patient?: Patient has dentist HPI HPI Comments History of Present Illness Details This is a 39-year-old female with mild recurrent major depression, anxiety, GERD, hypovitaminosis D and thoracic spine pain that comes today for preop evaluation for liposuction 360 with general anesthesia scheduled for December. Depression and anxiety has been stable with medications as needed as well as GERD with PPIs as needed. On vitamin-D supplements for her low vitamin- D. And thoracic spine pain has been well controlled with ibuprofen as needed in which she has not requiring awhile. She is going for a medium risk surgery and she is a low risk patient. Has 5-7 Mets of ADLs. EKG and labs are still pending for medical clearance. [facility] Medical History (Updated 10/28/24 @ 16:21 by Aurora Mejia MD) Physical exam Mild recurrent major depression Thoracic spine pain Headache Anxiety Palpitations Rash Difficulty swallowing solids Chronic fatigue Overweight Allergies Hypovitaminosis D GERD (gastroesophageal reflux disease) Surgical History H/O tubal ligation History of section Family History Father Hypertension Mother Hypertension Chronic mental illness Brother No problems noted. Brother No problems noted. Daughter No problems noted. Daughter No problems noted. Daughter No problems noted. Social History Housing: House Alcohol intake: current Alcohol intake frequency: holidays/special occasions only Patient Tobacco Use Status: Never used Tobacco e-Cigarette/Vaping Use: Never Used Second Hand Smoke Exposure: No service: No Current occupational status: employed Current occupational exposures/hazards: No Cognitive needs: No Hearing needs: No Vision needs: No Questionnaire PHQ-9 Over the last 2 weeks, how often have you been bothered by any of the following problems? 1. Little interest or pleasure in doing things: not at all 2. Feeling down, depressed, or hopeless: not at all 3. Trouble falling or staying asleep, or sleeping too much: not at all 4. Feeling tired or having little energy: not at all 5. Poor appetite or overeating: not at all 6. Feeling bad about yourself - or that you are a failure or have let yourself or your family down: not at all 7. Trouble concentrating on things, such as reading the newspaper or watching television: not at all 8. Moving or speaking so slowly that other people could have noticed. Or the opposite - being so fidgety or restless that you have been moving around a lot more than usual: not at all 9. Thoughts that you would be better off or of hurting yourself in some way: not at all Total score: 0 Depression Screening Interpretation: Negative Depression Screening Done: Yes 06821 - PHQ-9 Billing: Yes Source: Developed by Drs. Jourdan Vargas, Brandi Roldan, Bright Medellin and colleagues, with an educational anu from [employer]. Thrive Questionnaire Date Thrive assessed: 10/28/24 I am a: Patient What is your living situation today?: I have a steady place to live Within the past 12 months, did the food you bought not last and you didn't have the money to get more?: Never true Within the past 12 months, did you worry whether your food would run out before you got money to buy more?: Never true Do you have trouble paying for medicines?: No Do you have trouble getting transportation to medical appointments?: No Do you have trouble paying your heating and electricity bill?: No Do you have trouble taking care of your child, family member or friend?: No Do you have trouble with day-to-day activities such as bathing, preparing meals, shopping, managing finances, etc.?: No Are you currently unemployed and looking for a job?: No Are you interested in more education?: No Please select the resources that you would like help with: None Currently or been in a relationship where the following occur: No concerns reported THRIVE Score: 0 AUDIT C Alcohol Use Questionnaire (AUDIT-C) 1. How often do you have a drink containing alcohol?: Monthly or less 2. How many drinks containing alcohol do you have on a typical day when you are drinking?: 1 or 2 3. How often do you have six or more drinks on one occasion?: Never Total Score: 1 Score Reviewed/Action Taken: No DAKOTA-7 AMB Questionnaire DAKOTA-7 Date DAKOTA - 7 assessed: 10/28/24 Feeling nervous, anxious, or on edge: 1 = Several days Not being able to stop or control worryin = Not at all Worrying too much about different things: 0 = Not at all Trouble relaxin = Not at all Being so restless that it is hard to sit still: 0 = Not at all Becoming easily annoyed or irritable: 0 = Not at all Feeling afraid as if something awful might happen: 0 = Not at all Total DAKOTA-7 score (0-4 normal; 5-9 mild; 10-14 moderate; 15-21 severe): 1 Source: Developed by Drs. Jourdan Vargas, Brandi Roldan, Bright Medellin and colleagues, with an educational anu from [employer]. DAKOTA-7 Assessment Billing DAKOTA-7 Assessment Tool: DAKOTA-7 Assessment 36727 Review of Systems Const All systems reviewed & are unremarkable except as noted in HPI and below Card Denies chest pain at rest, Denies chest pain with activity, Denies edema, Denies irregular heart rhythm, Denies claudication, Denies dyspnea, Denies dyspnea on exertion, Denies orthopnea, Denies paroxysmal nocturnal dyspnea and Denies slow heart rate Resp Denies cough, Denies dyspnea and Denies dyspnea on exertion Physical exam (Primary Care) Vital Signs: Last Vital Signs BP 118/82 10/28/24 15:55 BMI result Body Mass Index 28.0 Tobacco/Smoking Status: Tobacco use Status Tobacco use date assessed 10/28/24 10/28/24 16:01 Patient Tobacco Use Status Never used Tobacco 10/28/24 16:01 e-Cigarette/Vaping Use Never Used 10/28/24 16:01 PHQ-9: PHQ-9 Score PHQ-9: Total score 0 10/28/24 17:03 Depression Screening Interpretation: Negative Thrive Assessment: Date of Thrive Assessment Date Thrive assessed 10/28/24 10/28/24 16:01 Currently or been in a relationship where the following occur: No concerns reported Const Orientation/consciousness: patient oriented x3 Resp Effort & Inspection: normal respiratory effort Auscultation: clear to auscultation bilaterally Cardio Jugular venous distension: no JVD Rate: regular rate Rhythm: regular rhythm Heart sounds: S1 normal heart sound present and S2 normal heart sound present Neuro General: patient oriented x3 Extrem General: Yes full ROM Psych Appearance: grossly normal Coding Level of Care Code Est Pt Level 4 (94815) Complex EM visit Add On G2211 Diagnoses Pre-op evaluation Z01.818 Mild recurrent major depression F33.0 Anxiety F41.9 Thoracic spine pain M54.6 Hypovitaminosis D E55.9 Gastroesophageal reflux disease, unspecified whether esophagitis present K21.9 Esophagitis presence: esophagitis presence not specified Additional Codes DAKOTA-7 Assessment Billing - DAKOTA-7 Assessment Tool: DAKOTA-7 Assessment 35059 ([id number]) PHQ-9 - 00297 - PHQ-9 Billing: Yes ([id number]) Time Spent (min) 22 Assessment & Plan Assessment & Plan (1) Pre-op evaluation: Code(s): Z01.818 - Encounter for other preprocedural examination Category: Medical Plan: EKG and labs pending for medical clearance. (2) Mild recurrent major depression: Code(s): F33.0 - Major depressive disorder, recurrent, mild Category: Medical Plan: Continue fluoxetine as needed. (3) Anxiety: Code(s): F41.9 - Anxiety disorder, unspecified Category: Medical Plan: Continue fluoxetine and benzodiazepines as needed. (4) Thoracic spine pain: Code(s): M54.6 - Pain in thoracic spine Category: Medical Plan: Continue ibuprofen as needed. Do not take ibuprofen 5 days before surgery. (5) Hypovitaminosis D: Code(s): E55.9 - Vitamin D deficiency, unspecified Category: Medical Plan: Continue vitamin-D supplements. (6) GERD (gastroesophageal reflux disease): Code(s): K21.9 - Gastro-esophageal reflux disease without esophagitis Category: Medical Qualifiers: Esophagitis presence: esophagitis presence not specified Qualified Code(s): K21.9 - Gastro-esophageal reflux disease without esophagitis Plan: Continue PPIs as needed. Orders: Orders Comprehensive [place]. Panel Fast Today M54.6 - Pain in thoracic spine Prothrombin Time INR Today M54.6 - Pain in thoracic spine Partial Thromboplastin Time Today M54.6 - Pain in thoracic spine Vitamin D 25-OH Total Today E55.9 - Vitamin D deficiency, unspecified Complete Blood Count Auto Diff Today F41.9 - Anxiety disorder, unspecified ECG 12 lead EKG Today Z01.818 - Encounter for other preprocedural examination Medications: New ascorbate calcium (vitamin C) 500 mg PO DAILY 90 tabs 1RF 90 days folic acid 1 mg PO DAILY 90 tabs 0RF 90 days ferrous sulfate 325 mg PO DAILY 90 tabs 0RF 90 days Refilled fluoxetine 10 mg PO DAILY 90 caps 0RF 90 days cholecalciferol (vitamin D3) 25 mcg PO DAILY 90 caps 0RF 90 days
== END 2024-10-28 16:25 | disposition home or self-care (01) ==
PROVIDERS: PCP Internal Medicine; Visit Provider Internal Medicine
DX: Z01.818 Encounter for other preprocedural examination (principal); F33.0 Major depressive disorder, recurrent, mild; F41.9 Anxiety disorder, unspecified; M54.6 Pain in thoracic spine; E55.9 Vitamin D deficiency, unspecified; K21.9 Gastro-esophageal reflux disease without esophagitis

== ENCOUNTER → 2024-10-28 15:47 | Outpatient (BNVA) | payer OTHER, SELFPAY | PROVIDERS: PCP Internal Medicine; Visit Provider Internal Medicine | DX: Z01.818 Encounter for other preprocedural examination (principal); K21.9 Gastro-esophageal reflux disease without esophagitis; F41.9 Anxiety disorder, unspecified; F33.0 Major depressive disorder, recurrent, mild; E55.9 Vitamin D deficiency, unspecified; M54.6 Pain in thoracic spine | CPT/HCPCS: 96127; 99212 ==

== ENCOUNTER 2024-10-30 12:30 | Outpatient (REF) | payer OTHER, SELFPAY ==
[2024-10-30 13:00] LABS: Basophils Absolute Auto 0.1 X10*3/uL (0.0-0.2); Eosinophils Absolute Auto 0.1 X10*3/uL (0.0-0.4); Eosinophils Percent Auto 1.7 % (0-4); Hematocrit 38.4 % (37.0-47.0); Hemoglobin 12.9 g/dl (12.0-16.0); Imm Gran Abs Auto 0.02 X10*3/uL (0.00-0.03); Imm Gran Pct Auto 0.3 % (0.0-0.4); Lymphocytes Absolute Auto 1.6 X10*3/uL (1.2-4.9); MANUAL DIFF FLAG NO; Mean Corpuscular HGB Conc 33.6 g/dl (31.0-35.0); Mean Corpuscular Hemoglobin 28.2 pg (27.0-33.0); Mean Corpuscular Volume 83.8 fL (80.0-98.0); Mean Platelet Volume 9.9 fL (9.4-12.3); Monocytes Absolute Auto 0.8 X10*3/uL (0.1-1.2); Monocytes Percent Auto 13.3 % (2-11); Neutrophils Absolute Auto 3.3 x10*3/uL (2.0-8.3); Neutrophils Percent Auto 56.7 % (45-73); Platelet Count 270 X10*3/uL (160-400); Red Blood Count 4.58 X10*6/uL (4.20-5.50); Red Cell Distribution Width 14.1 % (11.0-16.0); White Blood Count 5.8 X10*3/uL (4.8-10.8)
--- NOTE | 2024-10-30 13:05 | ECG_ITS ---
Test Reason : PRE OP Blood Pressure : */* mmHG Vent. Rate : 63 BPM Atrial Rate : 63 BPM P-R Int : 180 ms QRS Dur : 80 ms QT Int : 438 ms P-R-T Axes : 52 8 32 degrees QTcB Int : 448 ms Normal sinus rhythm Normal ECG No previous ECGs available Referred By: Aurora Mejia Electronically Signed By: ADAM AUGUSTIN
[2024-10-30 13:06] LABS: Prothrombin Time 11.7 SEC (10.9-12.4)
[2024-10-30 13:09] LABS: Partial Thromboplastin Time 31.3 SEC (26.0-36.8)
[2024-10-30 14:01] LABS: Alanine Aminotransferase 17 U/L (0-31); Albumin Level 4.1 g/dL (3.5-5.0); Anion Gap 11 (12-20); Aspartate Amino Transferase 21 U/L (5-31); Bilirubin Total 0.4 mg/dL (0.0-1.0); Blood Urea Nitrogen 11 mg/dL (9-16); Carbon Dioxide 25 mmol/L (22-29); Chloride 110 mmol/L (96-108); Estimated Glomerular Filt Rate > 60; Glucose Fasting 89 mg/dL (60-99); Potassium 3.6 mmol/L (3.3-5.1); Sodium 142 mmol/L (135-145); Total Protein 7.1 g/dL (6.5-8.0)
[2024-10-30 14:09] LABS: Alkaline Phosphatase 47 U/L (39-117)
[2024-10-30 14:15] LABS: Vitamin D 25-OH Total 40.6 ng/mL (>30)
== END 2024-10-30 12:31 | disposition home or self-care (01) ==
LOC: HO.LAB 12:30
PROVIDERS: PCP Internal Medicine; Visit Provider Internal Medicine
DX: Z01.818 Encounter for other preprocedural examination (principal); M54.6 Pain in thoracic spine; E55.9 Vitamin D deficiency, unspecified; F41.9 Anxiety disorder, unspecified
CPT/HCPCS: 36415; 80053; 82306; 85025; 85610; 85730; 93005

== ENCOUNTER → 2024-10-30 13:05 | Outpatient (BNV) | payer OTHER, SELFPAY | PROVIDERS: PCP Internal Medicine; Visit Provider Internal Medicine | DX: Z01.818 Encounter for other preprocedural examination (principal) | CPT/HCPCS: 93010 ==

== ENCOUNTER 2025-01-11 14:01 | Outpatient (AMB) | payer OTHER, SELFPAY ==
--- NOTE | 2025-01-11 15:03 | AM.OFFWIN_ITS ---
Intake Vital Signs 01/11/25 15:04 Weight 157 lb BP 120/90 H Blood Pressure Location Rt brachial Position Sitting Pulse 72 Pulse Source Pulse Oximeter Pulse Oximetry (%) 98 Oxygen Delivery Method Room Air Intake Visit Reasons: EP-mid & lower back pain, dizziness, chills/sweats Intake Note: Patient here for mid and lower back pain and wears out completely that started about 1 month or so. She would also like to discuss shaking, chills and sweats which has been happening pretty often and noticed that if she eats something sweet she tends to feel a bit better. Patient Tobacco Use Status: Never used Tobacco Allergies escitalopram Adverse Reaction (Intermediate, Verified 01/11/25 15:08) Abdominal Pain Do you need a note to return to daycare/school/sports/work: No HPI HPI Comments History of Present Illness Details 39 y/o female patient who presents to [facility] walk [facility] with c/o Mid - lower back pain for 1 month. Pt also c/o chills, body shakes and nausea, but symptoms go away with eating a meal. Pt does manual labor, lifts heavy boxes at work. [facility] Medical History (Updated 01/11/25 @ 15:38 by Jennie Hicks NP) Low back pain Acute respiratory disease Physical exam Mild recurrent major depression Thoracic spine pain Headache Anxiety Palpitations Rash Difficulty swallowing solids Chronic fatigue Overweight Allergies Hypovitaminosis D GERD (gastroesophageal reflux disease) Surgical History H/O tubal ligation History of section Family History Father Hypertension Mother Hypertension Chronic mental illness Brother No problems noted. Brother No problems noted. Daughter No problems noted. Daughter No problems noted. Daughter No problems noted. Social History Housing: House Alcohol intake: current Alcohol intake frequency: holidays/special occasions only Patient Tobacco Use Status: Never used Tobacco e-Cigarette/Vaping Use: Never Used Second Hand Smoke Exposure: No service: No Current occupational status: employed Current occupational exposures/hazards: No Cognitive needs: No Hearing needs: No Vision needs: No Review of Systems Const All systems reviewed & are unremarkable except as noted in HPI and below Physical Exam Vital Signs: Last Vital Signs Pulse 72 01/11/25 15:04 BP 120/90 H 01/11/25 15:04 Pulse Ox 98 01/11/25 15:04 Oxygen Delivery Method Room Air 01/11/25 15:04 Const General: cooperative and no acute distress Nutritional Appearance: overweight Orientation/consciousness: patient oriented x3 Limitations: language barrier HEENT Head: Yes normocephalic Ears: external ears normal and TM abnormal bulging and with fluid behind the TM bilateral General nose exam: Normal external nose present Face and sinus: Yes sinuses nontender Mouth: moist mucous membranes Throat: Yes uvula midline Resp Effort & Inspection: normal respiratory effort and able to speak in complete sentences Cardio Heart sounds: S1 normal heart sound present and S2 normal heart sound present Back/Spine/Pelvis Back: back tenderness Thoracic/Lumbar Spine: thoraco-lumbar spasm, thoracic spinal tenderness and lumbar spinal tenderness Neuro General: patient oriented x3 Assessment & Plan Assessment & Plan (1) Acute respiratory disease: Code(s): J06.9 - Acute upper respiratory infection, unspecified Plan: Ordered SARs (2) Low back pain: Code(s): M54.50 - Low back pain, unspecified Qualifiers: Back pain laterality: midline Chronicity: acute Sciatica presence: without sciatica Qualified Code(s): M54.50 - Low back pain, unspecified Plan: Rest and avoid heavy lifting. NSAIDs for pain relief. Orders: Orders SARS-CoV2/FLU/RSV Today J06.9 - Acute upper respiratory infection, unspecified Coding Level of Care Code Est Pt Level 4 (46513) Diagnoses Acute respiratory disease J06.9 Acute midline low back pain without sciatica M54.50 Back pain laterality: midline Chronicity: acute Sciatica presence: without sciatica Time Spent (min) 20
[2025-01-11 15:04] VITALS: BP 120/90; PULSE 72; O2SAT 98
== END 2025-01-11 15:40 | disposition home or self-care (01) ==
PROVIDERS: PCP Internal Medicine; Visit Provider Nurse Practitioner Family
DX: J06.9 Acute upper respiratory infection, unspecified (principal); M54.50 Low back pain, unspecified

== ENCOUNTER 2025-01-11 14:01 | Outpatient (REF) | payer OTHER, SELFPAY ==
[2025-01-12 11:25] LABS: Influenza A PCR NEGATIVE (Negative); Influenza B PCR NEGATIVE (Negative); Resp Syncy Virus RNA Qual PCR NEGATIVE (Negative); SARS COV2 PCR INHOUSE NEGATIVE (Negative)
== END 2025-01-11 14:02 | disposition home or self-care (01) ==
LOC: HO.LAB 14:01
PROVIDERS: Nurse Practitioner Family; PCP Internal Medicine
DX: J06.9 Acute upper respiratory infection, unspecified (principal); M54.50 Low back pain, unspecified
CPT/HCPCS: 0241U; 99212

== ENCOUNTER 2025-01-25 12:47 | Outpatient (AMB) | payer OTHER, SELFPAY ==
[2025-01-25 12:51] VITALS: BP 112/80; BMI 28.0
--- NOTE | 2025-01-25 12:51 | A.OFFPC_ITS ---
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 Agent Language: Electronic Organ Technician Name: Aurora Mejia MD Information Interpreted: non-clinical & clinical Accompanied by: Self / Same As Patient Allergies escitalopram Adverse Reaction (Intermediate, Verified 01/25/25 12:58) Abdominal Pain Medication List - Last Reconciled 01/25/25 by Aurora Mejia MD ascorbate calcium (vitamin C) 500 mg PO DAILY 90 days cetirizine (Allergy Relief (cetirizine)) 10 mg PO DAILY PRN 90 days cholecalciferol (vitamin D3) 25 mcg PO DAILY 90 days ferrous sulfate 325 mg PO DAILY 90 days fluocinolone acetonide oil 0.01% (DermOtic Oil) 5 drps otic (ear) left BID 7 days fluoxetine 10 mg PO DAILY 90 days folic acid 1 mg PO DAILY 90 days ketoconazole 2% 1 appl topical 2x a week as needed; lorazepam 0.5 mg PO BEDTIME PRN 30 days naproxen 500 mg PO Q12H 90 days omeprazole 40 mg PO DAILY 90 days triamcinolone acetonide 0.5% 1 appl topical BID 30 days Tobacco use date assessed: 10/28/24 Dental Screening Dental Screen Date: 10/28/24 HPI HPI Comments History of Present Illness Details The patient is a 39-year-old female presenting with persistent throat pain and allergy symptoms. The symptoms began following her return from [place] and include a persistent dry throat predominantly at night. She reports no fever accompanying these symptoms. A recent exacerbation of sinusitis occurred, accompanied by increased phlegm production. Her allergy symptoms have been managed with cetirizine, yet continue to cause discomfort. Diagnostic tests completed on January 11 returned negative results for COVID-19, influenza, and RSV. She has not yet been tested for streptococcal infection. The patient has a known allergy to escitalopram and is on a regimen that includes fluoxetine, iron supplements, and omeprazole, among others. She has made dietary adjustments, reducing carbohydrate intake as advised previously, and now consumes two meals daily despite cancer genetic counselor to increase to three due to weight management [id number] pandemic. Additionally, she has a history of kidney stones, which are currently stable. The stones have not changed in size or number. [facility] Medical History Low back pain Acute respiratory disease Physical exam Mild recurrent major depression Thoracic spine pain Headache Anxiety Palpitations Rash Difficulty swallowing solids Chronic fatigue Overweight Allergies Hypovitaminosis D GERD (gastroesophageal reflux disease) Surgical History H/O tubal ligation History of section Family History Father Hypertension Mother Hypertension Chronic mental illness Brother No problems noted. Brother No problems noted. Daughter No problems noted. Daughter No problems noted. Daughter No problems noted. Social History Housing: House Alcohol intake: current Alcohol intake frequency: holidays/special occasions only Patient Tobacco Use Status: Never used Tobacco e-Cigarette/Vaping Use: Never Used Second Hand Smoke Exposure: No service: No Current occupational status: employed Current occupational exposures/hazards: No Cognitive needs: No Hearing needs: No Vision needs: No Questionnaire Thrive Questionnaire Date Thrive assessed: 10/28/24 DAKOTA-7 AMB Questionnaire DAKOTA-7 Date DAKOTA - 7 assessed: 10/28/24 Source: Developed by Drs. Jourdan Vargas, Brandi Roldan, Bright Medellin and colleagues, with an educational anu from [employer]. Review of Systems Const All systems reviewed & are unremarkable except as noted in HPI and below ENT Reports nasal congestion, Reports nasal discharge, Reports sinus pressure and Reports sore throat Card Denies chest pain at rest, Denies chest pain with activity, Denies edema, Denies irregular heart rhythm, Denies claudication, Denies dyspnea, Denies dyspnea on exertion, Denies orthopnea, Denies paroxysmal nocturnal dyspnea and Denies slow heart rate Resp Denies cough, Denies dyspnea and Denies dyspnea on exertion GI Denies abdominal pain, Denies change in bowel habits, Denies excessive flatus, Denies nausea and Denies vomiting Neuro Denies behavioral changes and Denies lack of coordination Psych Denies behavioral changes Physical exam (Primary Care) Vital Signs: Last Vital Signs BP 112/80 01/25/25 12:51 BMI result Body Mass Index 28.0 Tobacco/Smoking Status: Tobacco use Status Tobacco use date assessed 10/28/24 01/25/25 12:56 Patient Tobacco Use Status Never used Tobacco 01/25/25 12:56 e-Cigarette/Vaping Use Never Used 01/25/25 12:56 Thrive Assessment: Date of Thrive Assessment Date Thrive assessed 10/28/24 01/25/25 12:56 Resp Effort & Inspection: normal respiratory effort Auscultation: clear to auscultation bilaterally Cardio Jugular venous distension: no JVD Rate: regular rate Rhythm: regular rhythm Heart sounds: S1 normal heart sound present and S2 normal heart sound present Extrem General: Yes full ROM Results AMB Rapid Strep AMB Rapid Strep Negative Last Edit by TRAVIS Urias on 01/25/25 13: 17 Results Reviewed Results Reviewed: Laboratory Last Values Strep Scn Rapid Clinic Negative 01/25/25 13:15 Coding Level of Care Code Est Pt Level 4 (89070) Complex EM visit Add On G2211 Diagnoses Acute respiratory disease J06.9 Thoracic spine pain M54.6 Mild recurrent major depression F33.0 Gastroesophageal reflux disease, unspecified whether esophagitis present K21.9 Esophagitis presence: esophagitis presence not specified Time Spent (min) 22 Assessment & Plan Assessment & Plan (1) Acute respiratory disease: Code(s): J06.9 - Acute upper respiratory infection, unspecified Category: Medical (2) Thoracic spine pain: Code(s): M54.6 - Pain in thoracic spine Category: Medical (3) Mild recurrent major depression: Code(s): F33.0 - Major depressive disorder, recurrent, mild Category: Medical (4) GERD (gastroesophageal reflux disease): Code(s): K21.9 - Gastro-esophageal reflux disease without esophagitis Category: Medical Qualifiers: Esophagitis presence: esophagitis presence not specified Qualified Code(s): K21.9 - Gastro-esophageal reflux disease without esophagitis Plan I plan to perform a rapid strep test to evaluate the patient?s persistent pharyngitis, and consider antibiotic therapy if indicated by positive results. Allergy management through cetirizine continuation is recommended for sinusitis, with consideration for potential antibiotic treatment if no improvement is noted. Addressing adverse reactions to escitalopram will continue to dictate informed antidepressant usage. Ongoing management of her iron deficiency anemia through iron supplements is advised. Regular checks of her vitamin levels, given the historical vitamin D deficiency, will continue. The patient?s stable kidney stones require reassessment regarding any symptomatic fluctuations, while pain management remains a pivotal focus. Adjustments to dietary intake should be pursued, supporting effective weight management. Patient was informed and verbally consented to the use of an ambient scribe for clinic note documentation during this visit. I discussed with the patient the need for a rapid strep test to rule out streptococcal pharyngitis due to her persistent throat pain. The possibility of initiating antibiotics if the test returns positive was reviewed. I explained the continuation of cetirizine for her allergy symptoms, with potential adjustment based on symptom response. I advised a repeat evaluation of her vitamin D and hemoglobin levels due to historical data indicating deficiencies, ensuring current treatment efficacy. Management of stable kidney stones with periodic reviews was covered. I reiterated dietary modifications for weight control and highlighted the benefits of structured eating patterns as part of her overall wellness strategy. Consent was taken for tests and discussed recommendations. Orders: Orders IRON PROFILE Today D64.9 - Anemia, unspecified Vitamin D 25-OH Total Today E55.9 - Vitamin D deficiency, unspecified XR thoracic spine 2V Today M54.6 - Pain in thoracic spine AMB Rapid Strep Screen Today Z13.9 - Encounter for screening, unspecified Comprehensive [place]. Panel Fast Today J06.9 - Acute upper respiratory infection, unspecified Complete Blood Count Auto Diff Today D64.9 - Anemia, unspecified Referrals Pain Management Referral M54.6 - Pain in thoracic spine Patient Instructions: - Perform the strep test today as planned. - Continue taking cetirizine for allergy symptoms. - Regularly take iron supplements and follow diet recommendations. - Prepare for possible antibiotic therapy if strep test is positive. - Stay on current medication regimen and avoid escitalopram. - Monitor kidney stone symptoms, report any changes. - Eat three meals a day for better nutritional balance. - Follow up as advised regarding her deficiencies and overall health management.
--- OUTSIDE RECORDS SUMMARY | 2025-01-25 15:06 | XMS_ITS | Clinical Summary ---
Author Organization [facility] Address [address] [place] [address] Care Team Providers Care Hydrometer Tester Name Role Phone Aurora Farr MD Primary Care Provider [phone] Encounters Date Type Department Care Team Description 11/16/2024 Documentation [facility] Plastic & Reconstructive Surgery [address] [place] [address] Rojelio Hollis MD from Last 3 Months Social History Tobacco Use Types Packs/Day Years Used Date Smoking Tobacco: Never Assessed Sex and Gender Information Value Date Recorded Sex Assigned at Not on file Gender Identity Not on file Sexual Orientation Not on file Plan of Treatment Health Maintenance Due Date Last Done Comments Hepatitis C Virus Screening 1986 HIV Screening 1999 DTaP/Tdap/Td Vaccines (1 - Tdap) 2005 Hepatitis B Vaccines (1 of 3 - 19+ 3-dose series) 2005 COVID-19 Vaccine (3 - season) 2024 12/01/2021, 10/12/2021 Influenza Vaccine Discontinued 10/01/2016 HPV Vaccines Aged Out No longer eligi ble based on patient's age to complete this topic Pneumococcal Vaccine: Pediatric (0-5 Years) and At-Risk Patients (6 to 49 Years) Aged Out No longer eligible b ased on patient's age to complete this topic Care Teams Hydrometer Tester Relationship Specialty Start Date End Date Aurora Farr MD [address] [place] [address] PCP - General Family Medicine 08/13/24
--- OUTSIDE RECORDS SUMMARY | 2025-01-25 15:07 | XMS_ITS | Clinical Summary ---
Author Organization [facility] Address [address] [place] [address] Care Team Providers Care Women'S Studies Professor Name Role Phone Unavailable Primary Care Provider Unavailabl e Source Comments PLEASE NOTE, if this patient is a minor, it may be UNLAWFUL to discuss sensitive information that is contained in these records (such as FAMILY PLANNING, MENTAL HEALTH or SUBSTANCE ABUSE) with the minor patient's parent or other person without the patient's specific authorization.[facility] Immunizations Immunization Administration Dates Next Due PFIZER COVID VACCINE, PURPLE CAP, 12+ 12/01/2021 ,10/12/2021 Social History Tobacco Use Types Packs/Day Years Used Date Smoking Tobacco: Never Assessed Social Connections Answer Date Recorded Connectedness 0 07/02/2024 Financial Resource Strain Answer Date R ecorded Financial Resource Strain 0 2022 Stress Answer Date Recorded Stress 0 02/21/2023 Physical Activity Answer Date Recorded Physical Activity 0 02/21/2023 Food Insecurity Answer Date Recorded Food 0 07/16/2024 Transportation Needs Answer Date Record ed Transportation 0 02/21/2023 Housing Stability Answer Date Recorded Housing 0 02/21/2023 Safety and Environment Answer Date Jose Luis rded Safety 0 02/21/2023 Utilities Answer Date Recorded Utilities 0 02/21/2023 Employment Answer Date Recorded Stress 0 07/02/2024 Comments Unknown Sex and Gender Information Value Date Recorded Sex Assigned at Not on file Legal Sex Female 7:31 AM PST Gender Identity Not on file Sexual Orientation Not on file Plan of Treatment Health Maintenance Due Date Last Done Comments Anxiety Screening 1986 Diabetes Screening 1986 HPV Screening 1986 Hepatitis C Screening 1986 Pap + HPV 1986 Tobacco Screening 1986 HIV Screening 2001 Relationship Safety Screening/Counseling 2001 Hypertension Screening (#1) 2004 Imm-Hepatitis B (1 of 3 - 19 + 3-dose series) 2005 Cervical Cancer Screening 2007 Pap Smear 2007 [id number] (2023- season) 2024 022, 10/12/2021 Imm-Influenza (#1) 2024 10/01/2016 Alcohol and Drug Screen 10/21/2024 Depression Annual Screen 10/21/2024 Imm-DTaP/Tdap/Td (3 - Td or Tdap) 02/11/2027 017, 01/22/2016 Cervical Ablation/Cold-Knife Conization Discontinued Cervical Cryotherapy Discontinued Colposcopy Discontinued Endometrial Biopsy Discontinued Excision/Leep Discontinued HPV Genotyping Discontinued Vaginal Pap Discontinued Vulvoscopy Discontinued [facility] [facility] Member Subscriber Plan / Payer (Ef fective 2020-Present) Name:GermanCharlie mott Relation to Subscriber:Self Name:Charlie German Payer ID:[id number] Group ID:[id number] Type:Medicaid Address: [address] [address] [place] [address] [place]
--- OUTSIDE RECORDS SUMMARY | 2025-01-25 15:07 | XMS_ITS | Clinical Summary ---
Author Organization [facility] it Address [address] [place] [address] Care Team Providers Care Football Scout Name Role Phone Aurora Mejia MD Primary Care Provider [phone] Surgical History Surgery Date Site/Laterality Comments SECTION PROCEDURE: HISTORICAL DELIVERY; COMMENT: x3 TUBAL LIGATION PROCEDURE: HISTORICAL TUBAL LIGATION Medical History Medical History Date Comments Depression DX:Depression Family History Medical History Relation Name Comments Diabetes Brother Hypertension Father blood clot Other: fibromyalgia Mother Relation Name Status Comments Brother Father Alive Maternal Grandfather Maternal Grandmother Alive Mother Alive Social History Tobacco Use Types Packs/Day Years Used Date Smoking Tobacco: Never Smokeless Tobacco: Never Alcohol Use Standard Drinks/Week Comments No 0 (1 standard drink = 0.6 oz pur e alcohol) Comments Unknown Sex and Gender Information Value Date Recorded Sex Assigned at Not on file Legal Sex Female 12:23 AM EST Gender Identity Not on file Sexual Orientation Not on file Obstetrics History Plan of Treatment Health Maintenance Due Date Last Done Comments DTaP,Tdap,and Td Vaccines (1 - Tdap) 2005 Hepatitis B Vaccines (1 of 3 - 19+ 3-dose series) 2005 Depression Screening 09/23/2022 HIV Screening 09/23/2022 Hepatitis C Screening 09/23/2022 Social Influencers of Health Screening 09/23/2022 COVID-19 Vaccine ( - 2023-2 5 season) 2024 Cervical Cancer Screening: P ap Smear 10/04/2024 10/04/2021 Influenza Vaccine (Season Ended) 2025 HIB Vaccines Aged Out No longer eligi ble based on patient's age to complete this topic HPV Vaccines Aged Out No longer eligi ble based on patient's age to complete this topic Hepatitis A Vaccines Aged Out No long er eligible based on patient's age to complete this topic IPV Vaccines Aged Out No longer eligi ble based on patient's age to complete this topic MMR Vaccines Aged Out No longer eligi ble based on patient's age to complete this topic Meningococcal ACWY Vaccine Aged Out N o longer eligible based on patient's age to complete this topic Meningococcal B Vaccine Aged Out No l onger eligible based on patient's age to complete this topic Pneumococcal Vaccine: Pediat rics (0 to 5 Years) and At-Risk Patients (6 to 64 Years) Aged Out No longer eligi ble based on patient's age to complete this topic RSV Immunization Patients Un diamond 20 months Aged Out No longer eligible b ased on patient's age to complete this topic Varicella Vaccines Aged Out No longer eligible based on patient's age to complete this topic Procedures Procedure Name Priority Date/Time Associated Diagnosis Comments PAP SMEAR Routine 10/04/2021 from Last 3 Months or Most Recently Relevant to Health Maintenance Results * Pap smear (10/04/2021) 10/04/2021 Narrative HISTORICAL TESTING LAB RESULTING AGENCY - 10/23/2021 1:35 PM EST [id number] THINPREP PAP, IMAGED: NEGATIVE FOR SQUAMOUS INTRAEPITHELIAL LESION AND MALIGNANCY . NOTE: THE PAP TEST IS A SCREENING TEST WITH AN INHERENT FALSE NEGATIVE RATE. AUTOMATED PRESCREENING OF ALL LIQUID BASED SPECIMENS IS PERFORMED BY THE THINPREP IMAGING SYSTEM UNLESS OTHERWISE STATED. NEELIMA REYNOSO(ASCP) (CASE ELECTRONICALLY SIGNED 10 23 2021) RESULT OF APTIMA HIGH RISK HPV ASSAY: HIGH RISK HPV: ??NEGATIVE (SEROTYPES 16,18,31,33,35,39,45,51,52,56,58,59,66,68) COMPLETED ON 2021-10-09 ADEQUACY: SATISFACTORY ENDOCERVICAL/TRANSFORMATION ZONE COMPONENT PRESENT. SOURCE: THINPREP PAP HPV ANY DX: ??REFLEX 16 AND 18, CERVICAL, IMAGED CLINICAL INFORMATION: HPV ANY DIAGNOSIS. HORMONES, PAP HX ??NEG, LMP 09/04/21, Z12.4 us Mariah Rios [facility] LAB CYTOLOGY ORDERABLES Leslye correia Result HISTORICAL TESTING LAB RESULTING AGENCY from Last 3 Months or Most Recently Relevant to Health Maintenance Care Teams Football Scout Relationship Specialty Start Date End Date Aurora Mejia MD [address] , [address] [facility] [place], [place] PCP - General Internal Medicine 03/29/21
--- OUTSIDE RECORDS SUMMARY | 2025-01-25 15:07 | XMS_ITS | Clinical Summary ---
Author Organization [facility] Facility Address [address] [place] [address] Care Team Providers Care Personal Lines Insurance Advisor Name Role Phone Aurora Farr MD Primary Care Provider [phone] Family History Medical History Relation Comments Cancer Father aunt Hypertension Father Kidney disease Father kidney stones Cancer Mother aunt Diabetes Mother Heart disease Mother Diabetes Sibling brother Relation Status Comments Father Unknown Mother Unknown Sibling Social History Tobacco Use Types Packs/Day Years Used Date Smoking Tobacco: Never Alcohol Use Standard Drinks/Week Comments No 0 (1 standard drink = 0.6 oz pure alcohol) Alcoholic Drinks/day: Occasional social drink Comments Unknown Sex and Gender Information Value Date Recorded Sex Assigned at Not on file Legal Sex Female 4:30 PM EST Gender Identity Not on file Sexual Orientation Not on file Plan of Treatment Health Maintenance Due Date Last Done Comments Pneumococcal Vaccine: Pediat rics (0 to 5 Years) and At-Risk Patients (6 to 64 Years) (1 of 2 - PCV) 1992 Hepatitis B Vaccine (1 of 3 - 19+ 3-dose series) 07/05 Influenza Vaccine (Season Ended) 2025 Insurance [employer] Care Teams Personal Lines Insurance Advisor Relationship Specialty Start Date End Date Aurora Farr MD [address] [place], [place] PCP - General 08/25/19
== END 2025-01-25 13:28 | disposition home or self-care (01) ==
LOC: HO.HMCH 12:48
PROVIDERS: PCP Internal Medicine; Visit Provider Internal Medicine
DX: J06.9 Acute upper respiratory infection, unspecified (principal); M54.6 Pain in thoracic spine; F33.0 Major depressive disorder, recurrent, mild; K21.9 Gastro-esophageal reflux disease without esophagitis; Z13.9 Encounter for screening, unspecified

== ENCOUNTER → 2025-01-25 12:47 | Outpatient (BNVA) | payer OTHER, SELFPAY | PROVIDERS: PCP Internal Medicine; Visit Provider Internal Medicine | DX: J06.9 Acute upper respiratory infection, unspecified (principal); M54.6 Pain in thoracic spine; F33.0 Major depressive disorder, recurrent, mild; K21.9 Gastro-esophageal reflux disease without esophagitis | CPT/HCPCS: 87880; 99212 ==

== ENCOUNTER 2025-02-24 09:55 | Outpatient (REF) | payer OTHER, SELFPAY ==
--- NOTE | ~2025-02-24 | XR_ITS ---
EXAMINATION: XR THORACIC SPINE CLINICAL INFORMATION: M54.6 - Pain in thoracic spine COMPARISON: July 28, 2021 TECHNIQUE: 3 views of the thoracic spine were obtained. FINDINGS: S-shaped curvature of the thoracolumbar spine. Multilevel marginal osteophyte formation and endplate sclerosis with decreased intervertebral disc height in the mid thoracic spine. No acute cortical disruption or malalignment. No lytic or blastic lesions. XR/XR thoracic spine 2V IMPRESSION: Mild to moderate scoliosis and spondylosis, thoracic -lumbar spine. Electronically signed by: Himanshu Munoz MD 02/24/2025 10:27 AM EDT
--- OUTSIDE RECORDS SUMMARY | 2025-02-24 10:56 | XMS_ITS | Clinical Summary ---
Author Organization [facility] Address [address] [place] [address] Care Team Providers Care Log Chipper Operator Name Role Phone Aurora Farr MD Primary Care Provider [phone] Social History Tobacco Use Types Packs/Day Years Used Date Smoking Tobacco: Never Assessed Comments Unknown Sex and Gender Information Value Date Recorded Sex Assigned at Not on file Legal Sex Female 4:11 PM EDT Gender Identity Not on file Sexual Orientation Not on file Plan of Treatment Health Maintenance Due Date Last Done Comments Hepatitis C Virus Screening 1986 HIV Screening 1999 DTaP/Tdap/Td Vaccines (1 - Tdap) 2005 Hepatitis B Vaccines (1 of 3 - 19+ 3-dose series) 2005 COVID-19 Vaccine ( season) 2024 12/01/2021, 10/12/2021 Influenza Vaccine Discontinued 10/01/2016 HPV Vaccines Aged Out No longer eligi ble based on patient's age to complete this topic Pneumococcal Vaccine: Pediatric (0-5 Years) and At-Risk Patients (6 to 49 Years) Aged Out No longer eligible b ased on patient's age to complete this topic Care Teams Log Chipper Operator Relationship Specialty Start Date End Date Aurora Farr MD [address] [place] [address] PCP - General Family Medicine 08/13/24
--- OUTSIDE RECORDS SUMMARY | 2025-02-24 10:56 | XMS_ITS | Clinical Summary ---
Author Organization [facility] Facility Address [address] [place] [address] Care Team Providers Care Freezer Unloader Name Role Phone Aurora Farr MD Primary Care Provider [phone] Family History Medical History Relation Comments Cancer [...] Maintenance Due Date Last Done Comments Hepatitis B Vaccine (1 of 3 - 19+ 3-dose series) 07/05 Pneumococcal Vaccine: Peds ( 0 to 5 Years) and At-Risk Patients (6 to 49 Years) (1 of 2 - PCV) 2005 Influenza Vaccine (Season Ended) [address] [place] [address] [employer] Care Teams Freezer Unloader Relationship Specialty Start Date End Date Aurora Farr MD [address] [place], [place] PCP - General 08/25/19
--- OUTSIDE RECORDS SUMMARY | 2025-02-24 10:57 | XMS_ITS | Clinical Summary ---
Author Organization [facility] Address [address] [place] [address] Care Team Providers Care Icing Maker Name Role Phone Unavailable Primary Care Provider [...] Cervical Cancer Screening 2007 Pap Smear 2007 [id number] (2023- season) 2024 022, 10/12/2021 Imm-Influenza (#1) 2024 10/01/2016 Alcohol and Drug Screen 10/21/2024 Depression Annual Screen 10/21/2024 Imm-DTaP/Tdap/Td (3 - Td or Tdap) 02/11/2027 017, 01/22/2016 Cervical Ablation/Cold-Knife Conization Discontinued Cervical Cryotherapy Discontinued Colposcopy Discontinued Endometrial Biopsy Discontinued Excision/Leep Discontinued HPV Genotyping Discontinued Vaginal Pap Discontinued Vulvoscopy Discontinued [facility] [employer] [facility] Member Subscriber Plan / Payer (Ef fective 2020-Present) Name:GermanCharlie mott Relation to Subscriber:Self Name:Charlie Geramn Payer ID:[id number] Group ID:[id number] Type:Medicaid Address: [address] [address] [place] [address] [place]
== END 2025-02-24 09:56 | disposition home or self-care (01) ==
LOC: HO.XRAY 09:55
PROVIDERS: PCP Internal Medicine; Visit Provider Internal Medicine
DX: M54.6 Pain in thoracic spine (principal)
CPT/HCPCS: 72070

== ENCOUNTER → 2025-02-24 09:59 | Outpatient (BNV) | payer OTHER, SELFPAY | PROVIDERS: PCP Internal Medicine; Visit Provider Radiology Diagnostic Radiology | DX: M47.815 Spondylosis without myelopathy or radiculopathy, thoracolumbar region (principal); M41.35 Thoracogenic scoliosis, thoracolumbar region | CPT/HCPCS: 72070 ==

== ENCOUNTER 2025-03-22 09:16 | Outpatient (AMB) | payer OTHER, SELFPAY ==
--- NOTE | 2025-03-22 09:37 | MHC.PC.OV ---
Vital Signs 03/22/25 09:40 Height 5 ft 3 in Weight 158 lb BMI 28.0 BP 130/82 Blood Pressure Location Lt brachial Position Sitting Pulse 71 Pulse Source Pulse Oximeter Pulse Oximetry (%) 98 Oxygen Delivery Method Room Air Intake Visit Reasons: Cosmetic surgery Boiling House Oiler Required: No Accompanied by: Self / Same As Patient Allergies escitalopram Adverse Reaction (Intermediate, Verified 03/22/25 09:47) Abdominal Pain Medication List - Last Reconciled 03/22/25 by Aurora Mejia MD ascorbate calcium (vitamin C) 500 mg PO DAILY 90 days cetirizine (Allergy Relief (cetirizine)) 10 mg PO DAILY PRN 90 days cholecalciferol (vitamin D3) 25 mcg PO DAILY 90 days ferrous sulfate 325 mg PO DAILY 90 days fluoxetine 10 mg PO DAILY 90 days folic acid 1 mg PO DAILY 90 days ketoconazole 2% 1 appl topical 2x a week as needed; lorazepam 0.5 mg PO BEDTIME PRN 30 days naproxen 500 mg PO Q12H 90 days omeprazole 40 mg PO DAILY 90 days triamcinolone acetonide 0.5% 1 appl topical BID 30 days Tobacco use date assessed: 10/28/24 Dental Screening Dental Screen Date: 10/28/24 HPI HPI Comments History of Present Illness Details The patient is a 39-year-old female presenting for a preoperative evaluation for liposuction surgery. Her history is notable for depression, anxiety, insomnia, hypertension, eczema, and episodes of tachycardia primarily occurring during nighttime. She experiences occasional fatigue on exertion such as stair climbing and exercise. A recent electrocardiogram showed a normal sinus rhythm. The patient has been cardiologically cleared for surgery after some initial logistical challenges regarding evaluation, and recent examinations have indicated mild hypertension likely exacerbated by anxiety. She has 5-7 Mets of ADLs. This is a medium risk surgery and she is a low risk patient. Labs pending. She has an allergy to escitalopram, previously causing abdominal pain, and experiences headaches when using fluoxetine for depression and anxiety, which she takes only when particularly needed. Her current medication regime includes vitamin D, vitamin C, cetirizine for allergy control, iron supplements, folic acid, omeprazole for gastroesophageal symptoms, naproxen, and lorazepam as needed, and a topical cream for eczema treatment. Her surgical history includes tubal ligation and three past deliveries. The patient's family history reveals hypertension in both her parents. She denies smoking and consumes alcohol infrequently, usually wine or liquor, not exceeding two drinks per occasion. [facility] Medical History Low back pain Acute respiratory disease Physical exam Mild recurrent major depression Thoracic spine pain Headache Anxiety Palpitations Rash Difficulty swallowing solids Chronic fatigue Overweight Allergies Hypovitaminosis D GERD (gastroesophageal reflux disease) Surgical History H/O tubal ligation History of section Family History Father Hypertension Mother Hypertension Chronic mental illness Brother No problems noted. Brother No problems noted. Daughter No problems noted. Daughter No problems noted. Daughter No problems noted. Social History (Updated 03/22/25 @ 09:54 by Aurora Mejia MD) Housing: House Alcohol intake: current Alcohol intake frequency: holidays/special occasions only Alcohol type: wine and hard liquor Patient Tobacco Use Status: Never used Tobacco e-Cigarette/Vaping Use: Never Used Second Hand Smoke Exposure: No service: No Current occupational status: employed Current occupational exposures/hazards: No Cognitive needs: No Hearing needs: No Vision needs: No Questionnaire Thrive Questionnaire Date Thrive assessed: 10/28/24 DAKOTA-7 AMB Questionnaire DAKOTA-7 Date DAKOTA - 7 assessed: 10/28/24 Source: Developed by Drs. Jourdan Vargas, Brandi Roldan, Bright Medellin and colleagues, with an educational anu from [employer]. Review of Systems Const All systems reviewed & are unremarkable except as noted in HPI and below Card Denies chest pain at rest, Denies chest pain with activity, Denies edema, Denies irregular heart rhythm, Denies claudication, Denies dyspnea, Denies dyspnea on exertion, Denies orthopnea, Denies paroxysmal nocturnal dyspnea and Denies slow heart rate Resp Denies cough, Denies dyspnea and Denies dyspnea on exertion Musc Denies abnormal gait, Denies atrophy, Denies deformity and Denies limited range of motion Neuro Denies abnormal gait, Denies behavioral changes and Denies lack of coordination Psych Denies behavioral changes Physical exam (Primary Care) Vital Signs: Last Vital Signs Pulse 71 03/22/25 09:40 BP 130/82 03/22/25 09:40 Pulse Ox 98 03/22/25 09:40 Oxygen Delivery Method Room Air 03/22/25 09:40 BMI result Body Mass Index 28.0 Tobacco/Smoking Status: Tobacco use Status Tobacco use date assessed 10/28/24 03/22/25 09:40 Patient Tobacco Use Status Never used Tobacco 03/22/25 09:40 e-Cigarette/Vaping Use Never Used 03/22/25 09:40 Thrive Assessment: Date of Thrive Assessment Date Thrive assessed 10/28/24 03/22/25 09:40 Resp Effort & Inspection: normal respiratory effort Auscultation: clear to auscultation bilaterally Cardio Jugular venous distension: no JVD Rate: regular rate Rhythm: regular rhythm Heart sounds: S1 normal heart sound present and S2 normal heart sound present Neuro General: no focal motor deficits Extrem General: Yes full ROM Coding Level of Care Code Est Pt Level 3 (31398) Complex EM visit Add On G2211 Diagnoses Pre-op evaluation Z01.818 Time Spent (min) 19 Assessment & Plan Assessment & Plan (1) Pre-op evaluation: Code(s): Z01.818 - Encounter for other preprocedural examination Category: Medical Plan The patient has been cleared for liposuction surgery with cardiological evaluation confirming suitability despite mild hypertension and anxiety management challenges. Continued monitoring of blood pressure and sympathetic management of anxiety issues are advised. Fluoxetine, given only as needed, and avoidance of escitalopram due to known allergies were reiterated. Comprehensive metabolic panels and CBC diagnostics are to be reviewed pre-surgery to confirm systemic adequacy. The patient was guided regarding antihypertensive medication adherence and maintaining healthy lifestyle practices. Patient was informed and verbally consented to the use of an ambient scribe for clinic note documentation during this visit. I discussed with the patient her suitability for the planned liposuction surgery, emphasizing the importance of stable cardiovascular and respiratory health preoperatively. We reviewed her normal electrocardiogram results and bristle machine operator clearance, as well as strategies for blood pressure and anxiety management. I explained the necessity of maintaining antihypertensive medication adherence and noted the impact occasional anxiety may have on her pressure readings. Regarding her allergies and noted headaches with fluoxetine, I advised using this medication sparingly as her symptoms have been improving. Upcoming laboratory work will further ensure preparatory system stability. I emphasized the low frequency of her alcohol use and lack of smoking history as positive factors in her surgical readiness, reminding her to continue these healthy practices. No additional surgery-related risks or complications were noted beyond the medium risk already associated with the planned procedure. Orders: Orders Prothrombin Time INR Today Z01.818 - Encounter for other preprocedural examination Complete Blood Count Auto Diff Today D64.9 - Anemia, unspecified Comprehensive Antonito. Panel Fast Today Z01.818 - Encounter for other preprocedural examination Partial Thromboplastin Time Today Z01.818 - Encounter for other preprocedural examination IRON PROFILE Today D64.9 - Anemia, unspecified Patient Instructions: - Proceed with scheduled lab tests in March. - Maintain current medication regimen and take fluoxetine only if necessary. - Monitor blood pressure regularly and manage anxiety to mitigate symptoms. - Avoid escitalopram due to allergy. - Follow up with any unusual symptoms like severe headaches or increased heart rates. - Keep a balanced lifestyle, especially regarding alcohol intake, to support overall health.
[2025-03-22 09:40] VITALS: BP 130/82; PULSE 71; O2SAT 98; BMI 28.0
--- OUTSIDE RECORDS SUMMARY | 2025-03-22 09:55 | XMS_ITS | Clinical Summary ---
Author Organization [facility] Address [address] [place] [address] Care Team Providers Care Flange Machine Operator Name Role Phone Aurora Farr MD Primary Care Provider [phone] Social History Tobacco Use Types Packs/Day Years [...] age to complete this topic Care Teams Flange Machine Operator Relationship Specialty Start Date End Date Aurora Farr MD [address] [place] [address] PCP - General Family Medicine 08/13/24
== END 2025-03-22 09:58 | disposition home or self-care (01) ==
LOC: HO.HMCH 09:17
PROVIDERS: PCP Internal Medicine; Visit Provider Internal Medicine
DX: Z01.818 Encounter for other preprocedural examination (principal)

== ENCOUNTER → 2025-03-22 09:16 | Outpatient (BNVA) | payer OTHER, SELFPAY | PROVIDERS: PCP Internal Medicine; Visit Provider Internal Medicine | DX: Z01.818 Encounter for other preprocedural examination (principal); D64.9 Anemia, unspecified; I10 Essential (primary) hypertension; F32.A Depression, unspecified; F41.9 Anxiety disorder, unspecified; G47.00 Insomnia, unspecified; R51.9 Headache, unspecified | CPT/HCPCS: 99212 ==

== ENCOUNTER 2025-04-12 10:40 | Outpatient (REF) | payer OTHER, SELFPAY ==
[2025-04-12 10:51] LABS: MANUAL DIFF FLAG NO
[2025-04-12 11:41] LABS: Basophils Absolute Auto 0.1 X10*3/uL (0.0-0.2); Basophils Percent Auto 0.9 % (0-2); Eosinophils Absolute Auto 0.3 X10*3/uL (0.0-0.4); Eosinophils Percent Auto 4.1 % (0-4); Hematocrit 38.2 % (37.0-47.0); Hemoglobin 12.5 g/dl (12.0-16.0); Imm Gran Abs Auto 0.03 X10*3/uL (0.00-0.03); Imm Gran Pct Auto 0.5 % (0.0-0.4); Lymphocytes Absolute Auto 1.8 X10*3/uL (1.2-4.9); Lymphocytes Percent Auto 26.9 % (20-40); Mean Corpuscular HGB Conc 32.7 g/dl (31.0-35.0); Mean Corpuscular Hemoglobin 27.8 pg (27.0-33.0); Mean Corpuscular Volume 85.1 fL (80.0-98.0); Mean Platelet Volume 10.3 fL (9.4-12.3); Monocytes Absolute Auto 0.9 X10*3/uL (0.1-1.2); Monocytes Percent Auto 13.1 % (2-11); Neutrophils Absolute Auto 3.6 x10*3/uL (2.0-8.3); Neutrophils Percent Auto 54.5 % (45-73); Platelet Count 251 X10*3/uL (160-400); Red Blood Count 4.49 X10*6/uL (4.20-5.50); Red Cell Distribution Width 14.2 % (11.0-16.0); White Blood Count 6.5 X10*3/uL (4.8-10.8)
[2025-04-12 11:47] LABS: Prothrombin Time 10.9 SEC (10.9-12.4)
--- OUTSIDE RECORDS SUMMARY | 2025-04-12 11:57 | XMS_ITS | Clinical Summary ---
Author Organization [facility] Address [address] [place] [address] Care Team Providers Care Insurance Investigator Name Role Phone Aurora Farr MD Primary Care Provider [phone] Social History Tobacco Use Types Packs/Day Years [...] age to complete this topic Care Teams Insurance Investigator Relationship Specialty Start Date End Date Aurora Farr MD [address] [place] [address] PCP - General Family Medicine 08/13/24
[2025-04-12 12:16] LABS: Alanine Aminotransferase 17 U/L (0-31); Albumin Level 3.8 g/dL (3.5-5.0); Alkaline Phosphatase 43 U/L (39-117); Anion Gap 10 (12-20); Aspartate Amino Transferase 19 U/L (5-31); Bilirubin Total 0.4 mg/dL (0.0-1.0); Blood Urea Nitrogen 14 mg/dL (9-16); Calcium 8.8 mg/dL (8.4-10.2); Carbon Dioxide 26 mmol/L (22-29); Chloride 109 mmol/L (96-108); Estimated Glomerular Filt Rate > 60; Glucose Fasting 80 mg/dL (60-99); Iron 68 mcg/dL (30-160); Percent Iron Saturation 32 % (15-50); Potassium 3.8 mmol/L (3.3-5.1); Sodium 141 mmol/L (135-145); Total Iron Binding Capacity 214 mcg/dL (228-428); Total Protein 6.3 g/dL (6.5-8.0); Unsaturated Iron Binding 146 ug/dL
[2025-04-12 12:26] LABS: Vitamin D 25-OH Total 80.2 ng/mL (>30)
== END 2025-04-12 10:41 | disposition home or self-care (01) ==
LOC: HO.LAB 10:40
PROVIDERS: PCP Internal Medicine; Visit Provider Internal Medicine
DX: Z01.818 Encounter for other preprocedural examination (principal); J06.9 Acute upper respiratory infection, unspecified; E55.9 Vitamin D deficiency, unspecified; D64.9 Anemia, unspecified
CPT/HCPCS: 36415; 80053; 82306; 83540; 85025; 85610; 85730

== ENCOUNTER 2025-07-27 13:14 | Outpatient (AMB) | payer OTHER, SELFPAY ==
[2025-07-27 13:16] VITALS: BP 122/84; PULSE 74; TEMP 36.3; O2SAT 97; BMI 28.5
--- NOTE | 2025-07-27 13:16 | MHC.PC.OV ---
Vital Signs 07/27/25 13:16 Height 5 ft 3 in Weight 161 lb 2 oz BMI 28.5 BP 122/84 Blood Pressure Location Lt brachial Position Sitting Pulse 74 Pulse Source Pulse Oximeter Temp 97.3 F Temp Source Temporal Artery Scan Pulse Oximetry (%) 97 Oxygen Delivery Method Room Air Intake Visit Reasons: Annual Exam Public Information Specialist Required: No Accompanied by: Self / Same As Patient Allergies escitalopram Adverse Reaction (Intermediate, Verified 07/27/25 13:23) Abdominal Pain Medication List - Last Reconciled 07/27/25 by Aurora Mejia MD ascorbate calcium (vitamin C) 500 mg PO DAILY 90 days cetirizine (Allergy Relief (cetirizine)) 10 mg PO DAILY PRN 90 days cholecalciferol (vitamin D3) 25 mcg PO DAILY 90 days ferrous sulfate 325 mg PO DAILY 90 days fluoxetine 10 mg PO DAILY 90 days folic acid 1 mg PO DAILY 90 days ketoconazole 2% 1 appl topical 2x a week as needed; lorazepam 0.5 mg PO BEDTIME PRN 30 days naproxen 500 mg PO Q12H 90 days omeprazole 40 mg PO DAILY 90 days triamcinolone acetonide 0.5% 1 appl topical BID 30 days Tobacco use date assessed: 07/27/25 Dental Screening Dental Screen Date: 07/27/25 Did you have a dental visit in the last 12 months?: Yes Did you have a dental problem in the last 6 months where you did not have access to dental care?: No Was dental information given to patient?: Patient has dentist HPI HPI Comments History of Present Illness Details The patient is a 40-year-old female presenting for an annual physical examination and preventative care. The patient has a known allergy to escitalopram, which causes gastrointestinal discomfort. She has been prescribed fluoxetine 10 mg for anxiety, which she uses intermittently. The patient reports a history of gastroesophageal reflux disease for which she takes omeprazole. She also uses lorazepam as needed for anxiety management. There is a family history of hypertension, with both parents affected. The patient does not smoke and consumes alcohol only on special occasions. Her blood pressure was recorded at 122/84 mmHg, which is within normal limits. [facility] Medical History (Updated 07/27/25 @ 13:33 by Aurora Mejia MD) Low back pain Acute respiratory disease Physical exam Mild recurrent major depression Thoracic spine pain Headache Anxiety Palpitations Rash Difficulty swallowing solids Chronic fatigue Overweight Allergies Hypovitaminosis D GERD (gastroesophageal reflux disease) Surgical History H/O tubal ligation History of section Family History Father Hypertension Mother Hypertension Chronic mental illness Brother No problems noted. Brother No problems noted. Daughter No problems noted. Daughter No problems noted. Daughter No problems noted. Social History Housing: House Alcohol intake: current Alcohol intake frequency: holidays/special occasions only Alcohol type: wine and hard liquor Patient Tobacco Use Status: Never used Tobacco e-Cigarette/Vaping Use: Never Used Second Hand Smoke Exposure: No service: No Current occupational status: employed Current occupational exposures/hazards: No Cognitive needs: No Hearing needs: No Vision needs: No Questionnaire PHQ-9 Over the last 2 weeks, how often have you been bothered by any of the following problems? 1. Little interest or pleasure in doing things: not at all 2. Feeling down, depressed, or hopeless: not at all 3. Trouble falling or staying asleep, or sleeping too much: not at all 4. Feeling tired or having little energy: not at all 5. Poor appetite or overeating: not at all 6. Feeling bad about yourself - or that you are a failure or have let yourself or your family down: not at all 7. Trouble concentrating on things, such as reading the newspaper or watching television: not at all 8. Moving or speaking so slowly that other people could have noticed. Or the opposite - being so fidgety or restless that you have been moving around a lot more than usual: not at all 9. Thoughts that you would be better off or of hurting yourself in some way: not at all Total score: 0 Depression Screening Interpretation: Negative Depression Screening Done: Yes 01346 - PHQ-9 Billing: Yes Source: Developed by Drs. Jourdan Vargas, Brandi Roldan, Bright Medellin and colleagues, with an educational anu from [employer]. Thrive Questionnaire Date Thrive assessed: 07/26/25 I am a: Patient What is your living situation today?: I have a steady place to live Within the past 12 months, did you worry whether your food would run out before you got money to buy more?: I choose not to answer this question Do you have trouble paying for medicines?: No Do you have trouble getting transportation to medical appointments?: No Do you have trouble paying your heating and electricity bill?: No Do you have trouble taking care of your child, family member or friend?: No Do you have trouble with day-to-day activities such as bathing, preparing meals, shopping, managing finances, etc.?: No Are you currently unemployed and looking for a job?: No Are you interested in more education?: I choose not to answer this question Please select the resources that you would like help with: None THRIVE Score: 0 AUDIT C Alcohol Use Questionnaire (AUDIT-C) 1. How often do you have a drink containing alcohol?: Monthly or less 2. How many drinks containing alcohol do you have on a typical day when you are drinking?: 1 or 2 3. How often do you have six or more drinks on one occasion?: Never Total Score: 1 DAKOTA-7 AMB Questionnaire DAKOTA-7 Date DAKOTA - 7 assessed: 10/28/24 Feeling nervous, anxious, or on edge: 1 = Several days Not being able to stop or control worryin = Several days Worrying too much about different things: 1 = Several days Trouble relaxin = Not at all Being so restless that it is hard to sit still: 0 = Not at all Feeling afraid as if something awful might happen: 1 = Several days Source: Developed by Drs. Jourdan Vargas, Brandi Roldan, Bright Medellin and colleagues, with an educational anu from [employer]. DAKOTA-7 Assessment Billing DAKOTA-7 Assessment Tool: DAKOTA-7 Assessment 46118 Review of Systems Const All systems reviewed & are unremarkable except as noted in HPI and below Card Denies chest pain at rest, Denies chest pain with activity, Denies edema, Denies irregular heart rhythm, Denies claudication, Denies dyspnea, Denies dyspnea on exertion, Denies orthopnea, Denies paroxysmal nocturnal dyspnea and Denies slow heart rate Resp Denies cough, Denies dyspnea and Denies dyspnea on exertion GI Denies abdominal pain, Denies change in bowel habits, Denies excessive flatus, Denies nausea and Denies vomiting Skin/Breast Denies bleeding lesions, Denies changing lesions and Denies rash Physical exam (Primary Care) Vital Signs: Last Vital Signs Temp 97.3 F 07/27/25 13:16 Pulse 74 07/27/25 13:16 BP 122/84 07/27/25 13:16 Pulse Ox 97 07/27/25 13:16 Oxygen Delivery Method Room Air 07/27/25 13:16 BMI result Body Mass Index 28.5 Tobacco/Smoking Status: Tobacco use Status Tobacco use date assessed 07/27/25 07/27/25 13:20 Patient Tobacco Use Status Never used Tobacco 07/27/25 13:16 e-Cigarette/Vaping Use Never Used 07/27/25 13:16 PHQ-9: PHQ-9 Score PHQ-9: Total score 0 07/27/25 13:20 Depression Screening Interpretation: Negative Thrive Assessment: Date of Thrive Assessment Date Thrive assessed 07/26/25 07/27/25 13:16 Const Orientation/consciousness: patient oriented x3 HENMT Head: Yes normal to inspection, Yes normocephalic and Yes atraumatic Ears: external ears normal Eyes General: appearance normal, both eyes and all related structures Eyelids: Yes eyelids normal Conjunctivae: conjunctivae normal Neck Neck: Yes normal visual inspection and Yes supple Resp Effort & Inspection: normal respiratory effort Auscultation: clear to auscultation bilaterally Cardio Jugular venous distension: no JVD Rate: regular rate Rhythm: regular rhythm Heart sounds: S1 normal heart sound present and S2 normal heart sound present GI Inspection: Yes normal to inspection Palpation (GI): Soft to palpation and nontender Auscultation: normal bowel sounds Skin General skin exam: no rashes or lesions noted Neuro General: patient oriented x3 and no focal motor deficits Extrem General: Yes full ROM Psych Appearance: grossly normal Coding Level of Care Code Est Pt Level 3 (33701) Est Pt Prev Care 18-39y(40647) Diagnoses Physical exam Z00.00 Right knee pain M25.561 Additional Codes PHQ-9 - 08876 - PHQ-9 Billing: Yes ([id number]) DAKOTA-7 Assessment Billing - DAKOTA-7 Assessment Tool: DAKOTA-7 Assessment 97203 ([id number]) Time Spent (min) 35 Assessment & Plan Assessment & Plan (1) Physical exam: Code(s): Z00.00 - Encounter for general adult medical examination without abnormal findings Category: Medical (2) Right knee pain: Code(s): M25.561 - Pain in right knee Category: Medical Plan Plan Patient was informed and verbally consented to the use of an ambient scribe for clinic note documentation during this visit. 1. Encounter for general adult medical examination without abnormal findings Z00.00 The patient is up to date with tetanus vaccination, with the next dose due in 2025. 2. Pain in right knee M25.561 Ortho referral and XR. Orders: Orders IRON PROFILE Today D64.9 - Anemia, unspecified Lipid Panel Today E78.5 - Hyperlipidemia, unspecified Comprehensive [place]. Panel Fast Today Z00.00 - Encounter for general adult medical examination without abnormal findings XR knee RT 2V Today M25.561 - Pain in right knee Complete Blood Count Auto Diff Today D64.9 - Anemia, unspecified Vitamin D 25-OH Total Today E55.9 - Vitamin D deficiency, unspecified Referrals Orthopedics Referral M25.561 - Pain in right knee Medications: Discontinued fluoxetine Discontinued Reason: Patient Completed Course 10 mg PO DAILY 90 days 90 caps 0RF
--- OUTSIDE RECORDS SUMMARY | 2025-07-27 16:12 | XMS_ITS | Clinical Summary ---
Author Organization [facility] Facility Address [address] [place] [id number] Care Team Providers Care Sales Operations Director Name Role Phone Aurora Farr MD Primary Care Provider [phone] Family History Medical History Relation Comments Cancer [...] of 2 - PCV) 2005 Influenza Vaccine (#1) 2025 Insurance [facility] [employer] Care Teams Sales Operations Director Relationship Specialty Start Date End Date Aurora Farr MD [address] [place], [place] PCP - General 08/25/19
--- OUTSIDE RECORDS SUMMARY | 2025-07-27 16:12 | XMS_ITS ---
Author Name [facility] Organization Unknown Care Team Organization Name Specialty Phone Email Start Date End [facility] JOLIE YO Primary Care 08/13/2024
--- OUTSIDE RECORDS SUMMARY | 2025-07-27 16:12 | XMS_ITS | Clinical Summary ---
Author Organization [facility] Address [address] [place] [address] Phone Care Team Providers Care Computed Tomography Technician Name Role Phone Aurora Mejia MD Primary Care Provider [phone] Allergies No known active allergies Medications omeprazole (PriLOSEC) [address] capsule Take 1 capsule (40 mg total) by mouth 1 (one) time each day. Do not crush or chew. Active cetirizine (ZyrTEC) 5 mg chewable tablet Chew 1 tablet (5 mg total) 1 (one) time each day. Active Active Problems Problem Noted Date Diagnosed Date Palpitations 03/10/2025 Surgical History Surgery Date Site/Laterality Comments SECTION PROCEDURE: HISTORICAL DELIVERY; COMMENT: x3 TUBAL LIGATION PROCEDURE: HISTORICAL TUBAL LIGATION Medical History Medical History Date Comments Depression DX:Depression Low back pain Acute respiratory disease GERD (gastroesophageal reflux disease) Overweight Chronic fatigue Allergies Mild recurrent major depression (CMS/HCC V24) Headache Hypovitaminosis D Family History Medical History Relation Name Comments Diabetes Brother Hypertension Father blood clot Mitral valve prolapse Mother Other: fibromyalgia Mother Relation Name Status Comments Brother Father Alive Maternal Grandfather Maternal Grandmother Alive Mother Alive Social History Tobacco Use Types Packs/Day Years Used Date Smoking Tobacco: Never Smokeless Tobacco: Never Alcohol Use Standard Drinks/Week Comments Yes 0 (1 standard drink = 0.6 oz pur e alcohol) Social Comments Unknown Sex and Gender Information Value Date Recorded Sex Assigned at Not on file Legal Sex Female 12:23 AM EST Gender Identity Not on file Sexual Orientation Not on file Obstetrics History Last Filed Vital Signs Vital Sign Reading Time Taken Comments Blood Pressure 126/76 04/01/2025 12:38 PM EDT Pulse 68 03/11/2025 2:19 PM EDT Temperature - - Respiratory Rate - - Oxygen Saturation 98% 03/11/2025 2:19 PM EDT Inhaled Oxygen Concentration - - Weight 72.1 kg (159 lb) 04/01/2025 12:38 PM EDT Height 160 cm (5' 3 ) 04/01/2025 12:38 PM EDT Body Mass Index 28.17 04/01/2025 12:38 PM EDT Plan of Treatment Health Maintenance Due Date Last Done Comments HPV Vaccines (1 - 3-dose SCD M series) 2013 Hepatitis B Vaccines (2 of 3 - 19+ 3-dose series) 08/17/2019 07/20/2019 HIV Screening 09/23/2022 Hepatitis C Screening 09/23/2022 Social Influencers of Health Screening 09/23/2022 Cervical Cancer Screening: P ap Smear 10/04/2024 10/04/2021 Depression Screening 10/21/2024 COVID-19 Vaccine (3 - 2024-2 6 season) 2025 12/01/2021, 10/12/2021 Influenza Vaccine (#1) 2025 10/01/2016 DTaP,Tdap,and Td Vaccines (3 - Td or Tdap) 02/11/2027 02/11/2017, 01/22/2016 RSV Immunization Adult Patients (1 - 1-dose 75+ series) 2061 HIB Vaccines Aged Out No longer eligi [...] age to complete this topic Pneumococcal Vaccine: Pediatrics (0 to 5 Years) and At-Risk Patients (6 to 49 Years) Aged Out No longer eligible b ased on patient's age to complete this topic RSV Immunization Patients Under 20 months Aged Out No longer eligible [...] RESULTING AGENCY - 10/23/2021 1:35 PM EST [id number] THINPREP PAP, IMAGED: NEGATIVE FOR SQUAMOUS INTRAEPITHELIAL LESION AND MALIGNANCY . NOTE: THE PAP TEST IS A SCREENING TEST WITH AN INHERENT FALSE NEGATIVE RATE. AUTOMATED PRESCREENING OF ALL LIQUID BASED SPECIMENS IS PERFORMED BY THE THINPREP IMAGING SYSTEM UNLESS OTHERWISE STATED. NEELIMA REYNOSO(ASCP) (CASE ELECTRONICALLY SIGNED 10 23 2021) RESULT OF APTIMA HIGH RISK HPV ASSAY: HIGH RISK HPV: NEGATIVE (SEROTYPES 16,18,31,33,35,39,45,51,52,56,58,59,66,68) COMPLETED ON 2021-10-09 ADEQUACY: SATISFACTORY ENDOCERVICAL/TRANSFORMATION ZONE COMPONENT PRESENT. SOURCE: THINPREP PAP HPV ANY DX: REFLEX 16 AND 18, CERVICAL, IMAGED CLINICAL INFORMATION: HPV ANY DIAGNOSIS. HORMONES, PAP HX NEG, LMP 09/04/21, Z12.4 Mariah [facility] CYTOLOGY ORDERABLES Leslye correia Result HISTORICAL TESTING LAB RESULTING AGENCY from Last 3 Months or Most Recently Relevant to Health Maintenance Insurance [employer] Care Teams Computed Tomography Technician Relationship Specialty Start Date End Date Aurora Mejia MD [address] [place] [address] , [address] Physician Associ D/B/A: [facility] CHRISTI Sellers PCP - General Internal Medicine 03/29/21
--- OUTSIDE RECORDS SUMMARY | 2025-07-27 16:12 | XMS_ITS | Clinical Summary ---
Author Organization [facility] Address [address] [place] [address] Care Team Providers Care Director Of It Operations Name Role Phone Unavailable Primary Care Provider [...] Cervical Cancer Screening 2007 Pap Smear 2007 Imm-HPV (1 - 3-dose SCDM series) 2013 Alcohol and Drug Screen 10/21/2024 Depression Annual Screen 10/21/2024 [id number] (3 - season) 2025 022, 10/12/2021 Imm-Influenza (#1) 2025 10/01/2016 Imm-DTaP/Tdap/Td (3 - Td or Tdap) 02/11/2027 017, 01/22/2016 Cervical Ablation/Cold-Knife Conization Discontinued Cervical Cryotherapy Discontinued Colposcopy Discontinued Endometrial Biopsy Discontinued Excision/Leep Discontinued HPV Genotyping Discontinued Vaginal Pap Discontinued Vulvoscopy Discontinued Insurance [employer] Member Subscriber Plan / Payer (Ef fective 2020-Present) Name:Charlie German Relation to Subscriber:Self Name:Charlie German Payer ID:[id number] Group ID:[id number] Type:Medicaid Address: [address] [address] [place] [address] [place]
--- OUTSIDE RECORDS SUMMARY | 2025-07-27 16:12 | XMS_ITS | Clinical Summary ---
Author Organization [facility] Address [address] [place] [address] Care Team Providers Care Bench Patternmaker Metal Name Role Phone Aurora Farr MD Primary Care Provider [phone] Social History Tobacco Use Types Packs/Day Years [...] 19+ 3-dose series) 2005 COVID-19 Vaccine ( - season) 2025 12/01/2021, 10/12/2021 Influenza Vaccine Discontinued 10/01/2016 HPV Vaccines (No Doses Required) Completed Pneumococcal Vaccine: Pediatric (0-5 Years) and At-Risk Patients (6 to 49 Years) Aged Out No longer eligible b ased on patient's age to complete this topic Care Teams Bench Patternmaker Metal Relationship Specialty Start Date End Date Aurora Farr MD [address] [place] [address] PCP - General Family Medicine 08/13/24
== END 2025-07-27 13:37 | disposition home or self-care (01) ==
PROVIDERS: PCP Internal Medicine; Visit Provider Internal Medicine
DX: Z00.00 Encounter for general adult medical examination without abnormal findings (principal); M25.561 Pain in right knee

== ENCOUNTER → 2025-07-27 13:14 | Outpatient (BNVA) | payer OTHER, SELFPAY | PROVIDERS: PCP Internal Medicine; Visit Provider Internal Medicine | DX: Z00.00 Encounter for general adult medical examination without abnormal findings (principal); I10 Essential (primary) hypertension; K21.9 Gastro-esophageal reflux disease without esophagitis; M25.561 Pain in right knee; D64.9 Anemia, unspecified; E78.5 Hyperlipidemia, unspecified; E55.9 Vitamin D deficiency, unspecified; Z91.09 Other allergy status, other than to drugs and biological substances | CPT/HCPCS: 96127; 99212; 99395 ==